=== PATIENT | female | born 1955 | race Caucasian/White ===

== ENCOUNTER 2019-10-16 08:07 | Outpatient (CLI) | payer BC, SELFPAY ==
--- NOTE | 2019-10-16 08:39 | XR_ITS ---
WS: [id number] HIP WITH PELVIS LEFT TECHNIQUE: 3 views of the left hip with pelvis CLINICAL INFORMATION: RHEUMATOID BURSITIS COMPARISON: None. FINDINGS: Moderate degenerative arthritis left hip with hypertrophic changes. Normal femoral neck. Proximal fem urs normal. Pelvic phleboliths. Normal left pubic rami. XR/XR hip LT 2-3V wo/w pel* 13875 IMPRESSION: Moderate degenerative arthritis left hip with hypertrophic changes.
== END 2019-10-16 08:08 | disposition home or self-care (01) ==
LOC: RADWPI 08:17
PROVIDERS: Family Provider Registered Nurse; PCP Nurse Practitioner Family; Visit Provider Nurse Practitioner Family
DX: M06.252 Rheumatoid bursitis, left hip (principal); M25.552 Pain in left hip; M16.12 Unilateral primary osteoarthritis, left hip
CPT/HCPCS: 73502

== ENCOUNTER → 2019-11-16 12:39 | Outpatient (BNVA) | payer BC, SELFPAY | PROVIDERS: Family Provider Registered Nurse; PCP Nurse Practitioner Family; Visit Provider Orthopaedic Surgery | DX: M25.552 Pain in left hip (principal); Z96.641 Presence of right artificial hip joint | CPT/HCPCS: 72170 ==

== ENCOUNTER 2019-11-23 08:00 | Day surgery (SDC) | payer BC, SELFPAY ==
--- NOTE | 2019-11-23 10:45 | ECG_ITS ---
Measurements Intervals [place] Rate: 115 P: 66 [place]: 164 QRS: 91 QRSD: 82 T: 50 QT: 304 QTc: 421 SINUS TACHYCARDIA POSSIBLE LEFT ATRIAL ENLARGEMENT [-0.1mV P WAVE IN V1/V2] BORDERLINE RIGHT AXIS DEVIATION [QRS AXIS > 90] ABNORMAL RHYTHM ECG Compared to ECG 10/02/2018 01:37:33 No significant changes Electronically Signed On 11-23-2019 19:29:07 CDT by Nina Aparicio M.D. [id number]
--- NOTE | 2019-11-23 11:08 | P.ANESASSM_ITS ---
Pre-Anesthetic Assessment Pre-Anesthetic Assessment: Height/Weight: Height 1.57 m Weight 68.039 kg Preop Diagnosis: Osteoarthritis Proposed Procedure: Operation Date: 12/03/19 10:25 Proposed Procedures p Total Hip Arthroplasty utilizing [employer] (TEN) computer naviagtion [id number] M16.12(Left) - Dameon Maria DO Familial anesthetic complications: None Social: Social History: Tobacco Packs per day: 0.5 ppd Exam: Pre-Anes Outpt Exam: alert, oriented x 3, clear to auscultation bilaterally and regular rate & rhythm Airway: Cervical ROM: WNL MP: 3 Additional comments: upper dentures Pulmonary: Pulmonary: None reported CV/HEM: CV/HEM: HTN : : None reported Hepatic: Hepatic: None reported GI: GI: GERD Metabolic: Metabolic: Hyperlipidemia Musc/skel: Musc/skel: Lower Back Pain and OA/DJD Neuropsych: Neuropsych: TIA Anesthetic Plan: ASA status: 3 Anesthesia: General Risk of > 500 ml blood loss (7ml/kg in children): No PFSH Anesthesia PFSH: Social History Smoking and tobacco status: current every day smoker cigarettes Packs smoked per day: 0.5 Alcohol intake: current Alcohol intake frequency: holidays/special occasions only Current occupational status: employed Current occupation: [employer] [facility] Data Anesthesia Cardiac Studies: No Data to Display
== END 2019-11-23 09:00 | disposition home or self-care (01) ==
LOC: OPS 04-19 15:09
PROVIDERS: PCP Nurse Practitioner Family; Visit Provider Orthopaedic Surgery
DX: Z01.818 Encounter for other preprocedural examination (principal); M19.91 Primary osteoarthritis, unspecified site; I10 Essential (primary) hypertension; K21.9 Gastro-esophageal reflux disease without esophagitis; E78.5 Hyperlipidemia, unspecified; F17.210 Nicotine dependence, cigarettes, uncomplicated; Z86.73 Personal history of transient ischemic attack (TIA), and cerebral infarction without residual deficits
CPT/HCPCS: 93005

== ENCOUNTER → 2019-11-30 15:25 | Outpatient (BNVA) | payer BC, SELFPAY | PROVIDERS: Family Provider Nurse Practitioner Family; PCP Nurse Practitioner Family; Visit Provider Internal Medicine Rheumatology | DX: M16.12 Unilateral primary osteoarthritis, left hip (principal); Z79.899 Other long term (current) drug therapy | CPT/HCPCS: 36415; 80076; 82565; 85651 ==

== ENCOUNTER → 2019-11-30 16:24 | Outpatient (BNVA) | payer BC, SELFPAY | PROVIDERS: Family Provider Nurse Practitioner Family; PCP Nurse Practitioner Family; Visit Provider Internal Medicine Rheumatology | DX: M16.12 Unilateral primary osteoarthritis, left hip (principal); Z79.899 Other long term (current) drug therapy | CPT/HCPCS: 85025 ==

== ENCOUNTER 2020-02-22 09:17 | Inpatient (IN) | payer MEDICARE, OTHER, BC, SELFPAY ==
--- NOTE | 2020-02-11 09:56 | ECG_ITS ---
Measurements Intervals [place] Rate: 93 P: 69 [place]: 186 QRS: 86 QRSD: 88 T: 53 QT: 339 QTc: 422 SINUS RHYTHM LOW QRS VOLTAGE IN PRECORDIAL LEADS [QRS DEFLECTION < 1.0 mV IN CHEST LEADS] Compared to ECG 11/23/2019 11:16:57 Low QRS voltage now present Sinus tachycardia no longer present Electronically Signed On 02-11-2020 21:09:46 CDT by Nina Aparicio M.D. [id number]
[2020-02-11 10:05] VITALS: BMI 28.0
--- NOTE | 2020-02-11 10:34 | P.ANESASSM_ITS ---
Pre-Anesthetic Assessment Pre-Anesthetic Assessment: Height/Weight: Height 1.57 m Weight 69.4 kg Preop Diagnosis: Osteoarthritis Proposed Procedure: Operation Date: 02/22/20 07:45 Proposed Procedures p Total Hip Arthroplasty 31380 M16.12(Left) - Donell Calle MD Familial anesthetic complications: none Social: Social History: Tobacco and No alcohol Exam: Pre-Anes Outpt Exam: alert, oriented x 3, clear to auscultation bilaterally and regular rate & rhythm Airway: Cervical ROM: WNL MP: 3 Dentition: False Pulmonary: Pulmonary: None reported CV/HEM: CV/HEM: HTN : : None reported Hepatic: Hepatic: None reported GI: GI: GERD Metabolic: Metabolic: None reported Musc/skel: Musc/skel: RA (on etanercept) Neuropsych: Neuropsych: TIA (on plavix) Anesthetic Plan: ASA status: 3 Anesthesia: General Risk of > 500 ml blood loss (7ml/kg in children): No PFSH Anesthesia PFSH: Medical History Degenerative joint disease of left hip Family History Sister Cancer Denies family history of Diabetes CAD (coronary artery disease) Clotting disorder Dementia Hyperlipidemia Psychiatric illness Chronic kidney disease (CKD) Suicide Anesthesia complication Bleeding disorder Family history of premature coronary artery disease Lung disease Hypertension Stroke Social History Smoking and tobacco status: current every day smoker cigarettes Packs smoked per day: 0.5 Alcohol intake: current Alcohol intake frequency: holidays/special occasions only Current occupational status: employed Current occupation: [employer] Anesthesia Cardiac Studies: No Data to Display
[2020-02-22] VITALS (24 sets, daily range): BP systolic 127–160; BP diastolic 69–88; PULSE 93–121; RESP 16–26; TEMP 35.7–37.1; O2SAT 92–100
[2020-02-22] MEDS: sodium chloride 0.9% 1,000 ML 30 ML IV (06:20)
--- NOTE | 2020-02-22 07:02 | W.PM.OPSUD ---
Surgery/Procedure H&P Update DATE OF PROCEDURE: February 22, 2020 DATE H&P PERFORMED: 02/04/20 PREOP DIAGNOSIS: Osteoarthritis PLANNED PROCEDURE: Operation Date: 02/22/20 07:00 Proposed Procedures p Total Hip Arthroplasty 60768 M16.12(Left) - Donell Calle MD
[2020-02-22] MEDS: tranexamic acid 1,000 mg/10mL SDV 1000 MG IV (07:07)
[2020-02-22] MEDS: tranexamic acid 1,000 mg/10mL SDV 1000 MG IRRIGATION (08:25)
--- NOTE | 2020-02-22 09:04 | P.OP_ITS ---
Operative Report Date of procedure: February 22, 2020 Pre-op Diagnosis: Osteoarthritis Post-op diagnosis: same Post-op Findings: Same Procedure Done: Left total hip arthroplasty Implants: 1) [place] 48 mm ADM acetabular shell 2) Size 7 [place] 132 degree neck angle SecureFit Max stem 3} 28 mm standard femoral head 4} Restorationa ADM X3 insert Pathology: none sent Surgeon: Donell Calle Anesthesia: General Estimated blood loss (mL): 100 Findings: Patient eburnation over the femoral head and superior acetabulum Condition: stable Disposition: PACU Procedure: The patient was taken to the operating room and anesthesia provided by the anesthesia service. The patient was placed in the lateral position on a beanbag. A timeout was performed. The patient was draped in the usual fashion. A 15 cm long incision was made beginning just proximal to the greater trochanter and extending posteriorly to a point just distal to the trochanter on the posterior border of the trochanter. Dissection was carried down with electrocautery through the subcutaneous fat to the fascia elizabeth which was divided proximally and distally with curved scissors. The anterior two thirds of the gluteus medius and minimus were elevated off the hip with electrocautery. The capsule was divided in a H-like fashion. The hip was dislocated and a neck cut made just above the level of the lesser trochanter. Exposure of the acetabulum was facilitated with the acetabular retractors. Remnants of labrum and peripheral osteophytes were removed with electrocautery and a rongeur. A reamer 2 mm under the size the femoral head was utilized to ream medially to the base of the palm and are. Reaming was then increased in 1 mm intervals until a healthy rim a trabecular bone was encountered. A trial ADM cup was placed and its position marked with electrocautery In the acetabulum. A final was press-fit into place. Attention was then focused on the femur. Sequential reaming was done under power until cortical chatter was encountered. Broaching was then accomplished until a stable broach size was obtained. A trial reduction with the head and neck provided excellent stability. The wound was irrigated with saline and antibiotic solution. The final French SecureFit Max stem was press-fit into place. The femoral head was placed and the hip was reduced. The hip was brought through range of motion and found to be free of impingement and stable. The anterior capsule was reapproximated with 1 Ethibond. The gluteus medius and minimus were repaired through bone with 5 Ethibond and reinforced with 1 Ethibond. The fascial elizabeth was closed with 1 Ethibond. The subcutaneous tissue closed with 2-0 Vicryl. The skin was closed with skin chapito. A sterile dressing was applied. The patient was taken to the recovery room in an abduction pillow in stable condition.
[2020-02-22] MEDS: morphine 4 mg/mL SDV 1 mL 2 MG IVP (09:11)
--- NOTE | 2020-02-22 09:13 | SUR.PHASEI ---
6163 PATIENT TO PACU AT THIS TIME FROM OR. DRESSING TO LEFT HIP, CDI. LEFT PEDAL PULSE, STRONG AND MARKED. FIRST ICE APPLIED. ABDUCTOR PILLOW IN PLACE. RODRIGUEZ CATH SECURED TO RIGHT LEG. PATIENT MOANING IN PAIN. PAIN MEDICATION ADMINISTERED.
--- NOTE | 2020-02-22 09:14 | XRR_ITS ---
PROCEDURE INFORMATION: Exam: XR Pelvis Exam date and time: 02/22/2020 9:23 AM Age: 65 years old Clinical indication: Condition or disease; Joint replacement status; Left; Prior surgery; Surgery date: Post-operative (0-2 days); Additional info: Postop L micha TECHNIQUE: Imaging protocol: XR pelvis. Views: 1 or 2 view. COMPARISON: No relevant prior studies available. FINDINGS: Bones/joints: Status post hip arthroplasty on the left. No acute fracture or dislocation. Operative changes in the soft tissues. Limited characterization of the pelvic. The pubic rami appear intact. Prior hip arthroplasty on the right Soft tissues: See Bones/joints finding. XR/XR pelvis 1-2V* [id number] IMPRESSION: Status post hip arthroplasty on the left. No acute fracture or dislocation. Operative changes in the soft tissues.
[2020-02-22] MEDS: HYDROmorphone 1 mg/mL INJ 1 mL 0.5 MG IVP ×2 (09:19→09:36)
[2020-02-22] MEDS: ondansetron 2 mg/ML SDV 2 mL 4 MG IVP ×2 (09:24→09:29)
--- NOTE | 2020-02-22 09:26 | PC.CHAP ---
Pastoral Care Encounter/Spiritual Assessment Type of Contact [] Declined fire operations forester visit [] Patient/Family/Request visit [] Outpatient visit [] Follow-up visit [] Physician referral [] Code/Alert [x] Routine visit [] Staff referral [] Actively dying [] Patient sleeping [] Family support [] [x] Out of room [] Palliative care [] [] Receiving care in room [] Pre-surgical visit [] Trauma [] Long length of stay [] ICU visit [] Other: Relational/Emotional Strength [] Patient feels connected with others/family/visitors/staff [] Distress [] Loneliness/isolation [] Abandonment Spirituality of Patient [] Person of Florinda [] Attends Hindu of their Florinda [] Believes in Prayer [] Reads Bible or Tenriism materials [] There are Spiritual issues to be addressed Wharf Tender Head Interventions [] Prayer [] Active listening [] Non-anxious presence [] Spiritual/emotional support [] Crisis/trauma care [] Spiritual counseling [] Bereavement support [] Provided bereavement packet [] Provided Bible/devotional materials [] Provided toy/stuffed animal, coloring book to patient or family member [] Provided Communion [] Anointing/[place] [] Salvation [] Completed spiritual assessment [] Other: Impact on Illness or Injury [] Angry [] Fearful [] Anxious [] Often cries [] Exhaustion [] Unable to work [] Unable to attend protestant [] Unable to walk/stand [] Unable to read [] Unable to drive [] Unable to eat/drink [] Unable to sleep [] Unable to be with family [] Patient intubated [] Other: Summary Time spent with patient
[2020-02-22] MEDS: metoclopramide 5 mg/mL SDV 2 mL 10 MG IVP (09:35)
--- NOTE | 2020-02-22 10:04 | SUR.PHASEI ---
0970 PATIENT TO MED SURG AT THIS TIME FROM PACU. PAIN AND NAUSEA IMPROVED, TOLERATING ICE CHIPS. ICE IN PLACE TO LEFT HIP. RODRIGUEZ DRAINING CLEAR YELLOW URINE AND SECURED TO LEFT LEG.
--- NOTE | 2020-02-22 11:13 | PC.RESP ---
Smoking Cessation information and a schedule of classes given to patient.
[2020-02-22] MEDS: CELEcoxib 200 mg Capsule PO ×2 (11:14→22:48)
[2020-02-22] MEDS: oxyCODONE 5 mg IR Tab/Cap 10 MG PO ×2 (12:11→21:21)
[2020-02-22] MEDS: chlorhexidine gluconate 0.12% Btl 473 mL 30 ML MUCOUS MEM ×3 (13:17→21:21)
[2020-02-22] MEDS: gabapentin 300 mg Capsule PO ×3 (13:17→21:21)
[2020-02-22] MEDS: lisinopril 20 mg Tablet 40 MG PO (18:13)
[2020-02-22] MEDS: calcium carbonate 500 mg Chew Tablet 1000 MG PO (18:13)
[2020-02-22] MEDS: iron polysaccharide complex 150 mg Capsule PO (18:14)
[2020-02-23] VITALS (11 sets, daily range): BP systolic 92–131; BP diastolic 59–74; PULSE 18–114; RESP 16–105; TEMP 36.6–37.6; O2SAT 92–100
[2020-02-23] MEDS: morphine IR 15 mg Tablet PO ×2 (00:17→11:54)
[2020-02-23] MEDS: oxyCODONE 5 mg IR Tab/Cap 10 MG PO (04:40)
[2020-02-23 05:30] LABS: Hemoglobin 11.9 g/dL (11.5-15.3)
[2020-02-23] MEDS: ondansetron 2 mg/ML SDV 2 mL 4 MG IVP (06:29)
--- NOTE | 2020-02-23 08:05 | P.PN_ITS ---
Subjective Subjective: Interval history: Complains of nausea and weakness. Slow to mobilize with therapy. Vitals/I&O/Wt Last Vital Signs Temp 98.4 F 02/23/20 07:52 Pulse 98 02/23/20 07:52 Resp 18 02/23/20 07:52 BP 92/59 02/23/20 07:52 Pulse Ox 100 02/23/20 07:52 02/22/20 02/23/20 02/23/20 22:59 06:59 14:59 Intake Total 50 / 1520 1010 / 2530 Output Total 2200 / 2500 1600 / 4100 Balance -2150 / -980 -590 / -1570 Physical Exam Narrative: EXAM NARRATIVE: Left hip incision clean. MInimal swelling thigh Left foot no noted neurovascular deficits Urinary Catheter Management^: Carter: Cath Placed During This Visit: yes, but has since been removed by the nurse Reason for Continuing Indwelling Catheter: Required Immobilization for Trauma or Surgery or Anesthesia Urinary Catheter Date of Insertion: 02/22/20 Urinary Catheter Time of Insertion: 07:15 Date Urinary Catheter Removed: 02/23/20 Time Urinary Catheter Discontinued: 06:00 Data : 02/23/20 04:47 A&P Assessment and plan (1) Chronic narcotic use: Not surprisingly, patient with problems with pain control. Will try to increase frequency of morphine as she has tolerated this at home. Suspected nausea and hypotension are due to narcotic use Status: Acute (2) Status post left hip replacement: Slow to progress with therapy due to complications with pain medications. Continue with therapy today Status: Acute Attestations Medical Necessity Statement*: Anticipate discharge tomorrow once pain medication regimen under better control. Coding Level of Care Code Acute Residential Electrician for Kailey Crook Diagnoses Chronic narcotic use F11.90 Status post left hip replacement Z96.642
[2020-02-23] MEDS: amlodipine 10 mg Tablet PO (09:14)
[2020-02-23] MEDS: atorvastatin 40 mg Tablet 20 MG PO (09:14)
[2020-02-23] MEDS: calcium carbonate 500 mg Chew Tablet 1000 MG PO ×2 (09:14→17:13)
[2020-02-23] MEDS: gabapentin 300 mg Capsule PO ×4 (09:14→20:29)
[2020-02-23] MEDS: iron polysaccharide complex 150 mg Capsule PO ×2 (09:14→17:13)
[2020-02-23] MEDS: venlafaxine ER (24HR) 150 mg Capsule PO (09:14)
[2020-02-23] MEDS: lisinopril 20 mg Tablet 40 MG PO ×2 (09:14→17:13)
[2020-02-23] MEDS: multivitamin therapeutic Tablet 1 TAB PO (09:15)
[2020-02-23] MEDS: cholecalciferol (vitamin D3) 1,000 unit Tablet 1000 UNIT PO (09:15)
[2020-02-23] MEDS: pantoprazole DR 40 mg Tablet PO (09:15)
[2020-02-23] MEDS: clopidogrel 75 mg Tablet PO (09:15)
[2020-02-23] MEDS: chlorhexidine gluconate 0.12% Btl 473 mL 30 ML MUCOUS MEM ×4 (09:15→20:29)
[2020-02-23] MEDS: CELEcoxib 200 mg Capsule PO ×2 (11:53→23:14)
[2020-02-23] MEDS: sennosides-docusate Tablet 2 TAB PO (17:13)
[2020-02-24 03:58] VITALS: BP 125/78; PULSE 104; RESP 16; TEMP 36.7; O2SAT 92
[2020-02-24 07:17] VITALS: BP 118/76; PULSE 122; RESP 22; TEMP 36.9; O2SAT 95
[2020-02-24 07:55] VITALS: RESP 18
[2020-02-24] MEDS: morphine IR 15 mg Tablet PO (07:55)
[2020-02-24] MEDS: iron polysaccharide complex 150 mg Capsule PO (07:56)
[2020-02-24] MEDS: venlafaxine ER (24HR) 150 mg Capsule PO (07:59)
[2020-02-24] MEDS: atorvastatin 40 mg Tablet 20 MG PO (07:59)
[2020-02-24] MEDS: gabapentin 300 mg Capsule PO ×2 (08:00→12:29)
[2020-02-24] MEDS: pantoprazole DR 40 mg Tablet PO (08:00)
[2020-02-24] MEDS: clopidogrel 75 mg Tablet PO (08:00)
[2020-02-24] MEDS: amlodipine 10 mg Tablet PO (08:00)
[2020-02-24] MEDS: multivitamin therapeutic Tablet 1 TAB PO (08:00)
[2020-02-24] MEDS: chlorhexidine gluconate 0.12% Btl 473 mL 30 ML MUCOUS MEM ×2 (08:00→12:29)
[2020-02-24] MEDS: cholecalciferol (vitamin D3) 1,000 unit Tablet 1000 UNIT PO (08:00)
[2020-02-24] MEDS: lisinopril 20 mg Tablet 40 MG PO (08:00)
[2020-02-24] MEDS: calcium carbonate 500 mg Chew Tablet 1000 MG PO (08:00)
[2020-02-24] MEDS: CELEcoxib 200 mg Capsule PO (10:42)
[2020-02-24 10:52] VITALS: BP 129/76; PULSE 113; RESP 18; TEMP 36.9; O2SAT 97
--- NOTE | 2020-02-24 14:45 | PM.DCS ---
Discharge Providers Date of Admission: 02/23/20 08:14 Date of Discharge: February 24, 2020 Attending Provider at Admission: Donell Calle MD Attending Provider at Discharge: Donell Calle MD Primary Care Provider: RORY Bonilla Diagnoses at Discharge Discharge Diagnosis (1) Chronic narcotic use: Status: Acute (2) Status post left hip replacement: Status: Acute (3) Degenerative joint disease of left hip: Status: Resolved Reason for Visit Reason for Visit: primary osteoarthritis of left hip Hospital Course Hospital Course: Patient was admitted for elective left total hip arthroplasty on 02/22/2020. On the first postoperative day she had problems with pain control and nausea. This was attributed to her oxycodone and she was change a more frequent dose of her immediate release morphine with good improvement. By the second day she was tolerating p.o. intake. She was independent with her therapy. She was managed with aspirin and sequential compression dressings for DVT prophylaxis. By the second day she was thought stable for discharge Physical Exam Narrative: EXAM NARRATIVE: Left hip incision is clean and dry. Expected swelling left thigh. Urinary Catheter Management^: Carter: Cath Placed During This Visit: yes, but has since been removed by the nurse Reason for Continuing Indwelling Catheter: Required Immobilization for Trauma or Surgery or Anesthesia Urinary Catheter Date of Insertion: 02/22/20 Urinary Catheter Time of Insertion: 07:15 Date Urinary Catheter Removed: 02/23/20 Time Urinary Catheter Discontinued: 06:00 Discharge Data Data Completed and Pending: Completed Studies During Hospitalization Category Date Time Status XR pelvis 1-2V* 7 2170 Routine Exams 02/22/20 09:14 Completed Vitals: Last Vital Signs Temp 98.5 F 02/24/20 10:52 Pulse 113 H 02/24/20 10:52 Resp 18 02/24/20 10:52 BP 129/76 02/24/20 10:52 Pulse Ox 97 02/24/20 10:52 Discharge Plan Discharge Condition: Stable Prescriptions: New celecoxib 200 mg Capsule 200 mg PO Q12H Qty: 30 RF: 0 Continued clopidogrel [Plavix] 75 mg tablet 75 mg PO DAILY RF: 0 carisoprodol 350 mg tablet 350 mg PO TID RF: 0 gabapentin 300 mg capsule 300 mg PO QID RF: 0 morphine 15 mg tablet 15 mg PO QID PRN (Reason: Pain) RF: 0 alprazolam 1 mg tablet 1 mg PO TID PRN (Reason: Nausea) RF: 0 venlafaxine 150 mg capsule,extended release 24hr 150 mg PO DAILY RF: 0 atorvastatin 20 mg tablet 20 mg PO DAILY RF: 0 amlodipine 10 mg tablet 10 mg PO DAILY RF: 0 lisinopril 40 mg tablet 40 mg PO BID RF: 0 Enbrel Mini 50 mg/mL (1 mL) cartridge 50 mg SUBCUT .Q7 days Qty: 4 RF: 2 promethazine 12.5 mg Tablet 12.5 - 25 mg PO TID PRN (Reason: Nausea) RF: 0 Enbrel 50 mg/mL (1 mL) Syringe 50 mg SUBCUT DIRECTED RF: 0 esomeprazole magnesium 20 mg capsule,delayed release(DR/EC) 20 mg PO DAILY RF: 0 Referrals: Keila Schwarz FNP [Primary Care Provider] - Donell Calle MD [Physician] - 03/07/20 2:30 pm Discharge Diet: Advance as tolerated Discharge Activity: Limit activity as instructed Activity Restrictions/Additional Instructions: May shower once incisions completely free of drainage. Discontinue right hip dressing in 24-48 hours. Replaced dressings as needed. Take Celebrex twice a day for the next 15 days for pain , discontinue other anti-inflammatories Take morphine for breakthrough pain. Exercises per physical therapy. May discontinue abduction pillow Discharge Attestations Time Spent in Discharge Care*: other Quality Metrics Clinical Quality Measures During this hospital stay, did patient experience: None Coding Level of Care Code Acute Temporary Receptionist for Kailey Fwkapil Diagnoses Chronic narcotic use F11.90 Status post left hip replacement Z96.642 Degenerative joint disease of left hip M16.12
[2020-02-24 16:16] VITALS: BP 129/76; PULSE 113; RESP 18; TEMP 36.9; O2SAT 97
== END 2020-02-24 16:19 | disposition home health service (06) | DRG 470 ==
LOC: MEDSURG 09:17
PROVIDERS: Admitting Provider Orthopaedic Surgery; PCP Nurse Practitioner Family; Visit Provider Orthopaedic Surgery
PROC: 0SRB0J9 Replacement of Left Hip Joint with Synthetic Substitute, Cemented, Open Approach (ICD-10-PCS; CPT 27130; principal; 2020-02-22 07:00)
DX: M16.12 Unilateral primary osteoarthritis, left hip (principal); M06.9 Rheumatoid arthritis, unspecified; K21.9 Gastro-esophageal reflux disease without esophagitis; I10 Essential (primary) hypertension; F17.210 Nicotine dependence, cigarettes, uncomplicated; Z86.73 Personal history of transient ischemic attack (TIA), and cerebral infarction without residual deficits; Z79.02 Long term (current) use of antithrombotics/antiplatelets; Z79.891 Long term (current) use of opiate analgesic
CPT/HCPCS: 12345; 36415; 51702; 72170; 85018; 93005; 97110; 97116; 97161; 97165; 97166; 97530; 97535; C1776; G0378; J0690; J1170; J1580; J2270; J2405; J2704; J2765; J3010; J3490; J7030

== ENCOUNTER → 2020-04-04 11:39 | Outpatient (BNVA) | payer MEDICARE, OTHER, SELFPAY | PROVIDERS: PCP Nurse Practitioner Family; Visit Provider Orthopaedic Surgery | DX: Z48.89 Encounter for other specified surgical aftercare (principal); Z96.642 Presence of left artificial hip joint | CPT/HCPCS: 73502 ==

== ENCOUNTER → 2020-04-13 11:31 | Outpatient (BNVA) | payer MEDICARE, OTHER, SELFPAY | PROVIDERS: PCP Nurse Practitioner Family; Visit Provider Internal Medicine Rheumatology | DX: M05.79 Rheumatoid arthritis with rheumatoid factor of multiple sites without organ or systems involvement (principal); Z11.59 Encounter for screening for other viral diseases; Z79.899 Other long term (current) drug therapy; M19.90 Unspecified osteoarthritis, unspecified site; M79.7 Fibromyalgia; F17.210 Nicotine dependence, cigarettes, uncomplicated | CPT/HCPCS: 36415; 80076; 82306; 82565; 85025; 85651; 86140; 86704; 86803; 87340; 99214 ==

== ENCOUNTER 2020-12-15 11:14 | Outpatient (CLI) | payer MEDICARE, OTHER, SELFPAY ==
--- NOTE | 2020-12-15 11:22 | MM_ITS ---
WS: [id number] BILATERAL SCREENING DIGITAL MAMMOGRAM WITH CAD HISTORY: SCREENING COMPARISON: 11/04/2015 and 09/10/2014 Bilateral CC and MLO views submitted. Computer aided detection analyzed. Breast composition: There are scattered areas of fibroglandular density. No suspicious masses, microc alcifications or architectural distortion. Long-term stability of a 2.0 x 1.5 cm high density nodule in the anterior RIGHT breast at 9:00. Benign calcifications in each breast. MM/[place] [id number] IMPRESSION: BI-RADS: 2-Benign FOLLOW UP: 1 Year Follow-up
== END 2020-12-15 11:15 | disposition home or self-care (01) ==
LOC: RADSHAW 11:20
PROVIDERS: PCP Nurse Practitioner Family; Visit Provider Nurse Practitioner Family
DX: Z12.31 Encounter for screening mammogram for malignant neoplasm of breast (principal)
CPT/HCPCS: 77067

== ENCOUNTER 2020-12-26 13:09 | Outpatient (CLI) | payer MEDICARE, OTHER, SELFPAY ==
[2020-12-26 14:06] LABS: Basophils % 0.5 %; Eosinophils # 0.1 10^3/uL (0.0-0.8); Eosinophils % 0.7 %; Hematocrit 39.1 % (37.0-47.0); Hemoglobin 12.6 g/dL (11.5-15.3); Lymphocytes # 3.7 10^3/uL (0.8-4.8); Lymphocytes % 50.1 %; Mean Corpuscular HGB Conc 32.2 g/dL (30.0-36.0); Mean Corpuscular Hemoglobin 31.9 pg (28.0-34.0); Mean Platelet Volume 9.7 fL (7.4-10.4); Monocytes # 0.5 10^3/uL (0.2-0.9); Monocytes % 6.8 %; Neutrophils # 3.12 10^3/uL (1.8-7.7); Neutrophils % 41.8 %; Nucleated Red Blood Cells % 0 %; Platelet Count 385 10^3/cmm (130-400); Red Blood Count 3.95 10^6/uL (4.1-5.3); Red Cell Distribution Width 13.9 % (12.1-15.1); White Blood Count 7.5 10^3/uL (4.0-10.0)
[2020-12-26 14:21] LABS: Alanine Aminotransferase 18 U/L (0-33); Albumin Level 4.2 g/dL (3.5-5.2); Alkaline Phosphatase 65 IU/L (35-105); Aspartate Amino Transferase 21 U/L (0-32); C Reactive Protein 2.3 mg/L (0.0-4.9); Globulin 2.4 g/dL (1.3-4.6); Glomerular Filtration Rate 160.2 mL/min (90-130); Total Bilirubin 0.2 mg/dL (0.15-1.2); Total Protein 6.6 g/dL (6.6-8.7)
== END 2020-12-26 13:10 ==
LOC: LAB 13:14
PROVIDERS: PCP Nurse Practitioner Family; Visit Provider Internal Medicine Rheumatology
DX: M05.79 Rheumatoid arthritis with rheumatoid factor of multiple sites without organ or systems involvement (principal); Z79.899 Other long term (current) drug therapy; M79.7 Fibromyalgia; Z96.653 Presence of artificial knee joint, bilateral; Z96.643 Presence of artificial hip joint, bilateral; F17.210 Nicotine dependence, cigarettes, uncomplicated
CPT/HCPCS: 36415; 80076; 82565; 85025; 86140; 99214

== ENCOUNTER → 2021-04-10 09:56 | Outpatient (BNVA) | payer MEDICARE, OTHER, SELFPAY | PROVIDERS: PCP Nurse Practitioner Family; Visit Provider Internal Medicine Rheumatology | DX: M05.79 Rheumatoid arthritis with rheumatoid factor of multiple sites without organ or systems involvement (principal); Z79.899 Other long term (current) drug therapy; Z01.89 Encounter for other specified special examinations | CPT/HCPCS: 80076; 82565; 85025; 86140 ==

== ENCOUNTER → 2021-11-08 12:56 | Outpatient (BNVA) | payer MEDICARE, SELFPAY | PROVIDERS: PCP Nurse Practitioner Family; Visit Provider Internal Medicine Rheumatology | DX: M05.79 Rheumatoid arthritis with rheumatoid factor of multiple sites without organ or systems involvement (principal); M15.9 Polyosteoarthritis, unspecified; Z79.899 Other long term (current) drug therapy; M79.7 Fibromyalgia; Z96.643 Presence of artificial hip joint, bilateral; Z96.651 Presence of right artificial knee joint; Z71.89 Other specified counseling | CPT/HCPCS: 99214 ==

== ENCOUNTER 2021-11-29 12:48 | Outpatient (CLI) | payer MEDICARE, SELFPAY ==
[2021-11-29 14:36] LABS: Basophils # 0.1 10^3/uL (0.0-0.1); Basophils % 0.6 %; Eosinophils # 0.1 10^3/uL (0.0-0.8); Eosinophils % 0.8 %; Hematocrit 42.2 % (37.0-47.0); Hemoglobin 13.6 g/dL (11.5-15.3); Lymphocytes # 2.8 10^3/uL (0.8-4.8); Lymphocytes % 35.3 %; Mean Corpuscular HGB Conc 32.2 g/dL (30.0-36.0); Mean Corpuscular Hemoglobin 31.3 pg (28.0-34.0); Mean Platelet Volume 10.4 fL (7.4-10.4); Monocytes # 0.5 10^3/uL (0.2-0.9); Monocytes % 6.2 %; Neutrophils # 4.51 10^3/uL (1.8-7.7); Neutrophils % 56.7 %; Nucleated Red Blood Cells % 0 %; Platelet Count 400 10^3/cmm (130-400); Red Blood Count 4.35 10^6/uL (4.1-5.3); Red Cell Distribution Width 12.8 % (12.1-15.1); White Blood Count 7.9 10^3/uL (4.0-10.0)
[2021-11-29 15:09] LABS: Alanine Aminotransferase 20 U/L (0-33); Albumin Level 4.6 g/dL (3.5-5.2); Alkaline Phosphatase 76 IU/L (35-105); Aspartate Amino Transferase 24 U/L (0-32); Globulin 2.6 g/dL (1.3-4.6); Glomerular Filtration Rate 159.7 mL/min (90-130); Total Bilirubin 0.3 mg/dL (0.15-1.2); Total Protein 7.2 g/dL (6.6-8.7)
== END 2021-11-29 12:49 | disposition home or self-care (01) ==
PROVIDERS: PCP Nurse Practitioner Family; Visit Provider Internal Medicine Rheumatology
DX: M05.79 Rheumatoid arthritis with rheumatoid factor of multiple sites without organ or systems involvement (principal); Z79.899 Other long term (current) drug therapy
CPT/HCPCS: 80076; 82565; 85025; 86140

== ENCOUNTER 2022-03-14 11:05 | Outpatient (CLI) | payer MEDICARE, SELFPAY ==
[2022-03-14 11:48] LABS: Basophils % 0.5 %; Eosinophils % 0.2 %; Hematocrit 41.7 % (37.0-47.0); Hemoglobin 13.5 g/dL (11.5-15.3); Lymphocytes # 1.7 10^3/uL (0.8-4.8); Lymphocytes % 20.6 %; Mean Corpuscular HGB Conc 32.4 g/dL (30.0-36.0); Mean Corpuscular Hemoglobin 31.1 pg (28.0-34.0); Mean Corpuscular Volume 96.1 fl (81-99); Mean Platelet Volume 9.8 fL (7.4-10.4); Monocytes # 0.5 10^3/uL (0.2-0.9); Monocytes % 5.9 %; Neutrophils # 5.91 10^3/uL (1.8-7.7); Neutrophils % 72.4 %; Nucleated Red Blood Cells % 0 %; Platelet Count 395 10^3/cmm (130-400); Red Blood Count 4.34 10^6/uL (4.1-5.3); Red Cell Distribution Width 14.3 % (12.1-15.1); White Blood Count 8.2 10^3/uL (4.0-10.0)
[2022-03-14 12:41] LABS: Alanine Aminotransferase 15 U/L (0-33); Albumin Level 4.5 g/dL (3.5-5.2); Alkaline Phosphatase 74 IU/L (35-105); Aspartate Amino Transferase 17 U/L (0-32); C Reactive Protein 19.2 mg/L (0.0-4.9); Globulin 2.4 g/dL (1.3-4.6); Glomerular Filtration Rate 159.2 mL/min (90-130); Total Bilirubin 0.2 mg/dL (0.15-1.2); Total Protein 6.9 g/dL (6.6-8.7)
== END 2022-03-14 11:06 | disposition home or self-care (01) ==
LOC: LAB 11:07 → RAD 14:26
PROVIDERS: PCP Nurse Practitioner Family; Visit Provider Internal Medicine Rheumatology
DX: M15.9 Polyosteoarthritis, unspecified (principal); M79.7 Fibromyalgia; Z96.698 Presence of other orthopedic joint implants; I70.0 Atherosclerosis of aorta; M05.79 Rheumatoid arthritis with rheumatoid factor of multiple sites without organ or systems involvement; Z79.899 Other long term (current) drug therapy
CPT/HCPCS: 71046; 80076; 82565; 85025; 86140; 99214

== ENCOUNTER 2022-07-02 13:28 | Outpatient (CLI) | payer MEDICARE, SELFPAY ==
[2022-07-02 13:54] LABS: Basophils % 0.4 %; Eosinophils % 0.1 %; Hematocrit 41.7 % (37.0-47.0); Hemoglobin 13.6 g/dL (11.5-15.3); Lymphocytes # 1.4 10^3/uL (0.8-4.8); Lymphocytes % 12.7 %; Mean Corpuscular HGB Conc 32.6 g/dL (30.0-36.0); Mean Corpuscular Hemoglobin 31.5 pg (28.0-34.0); Mean Corpuscular Volume 96.5 fl (81-99); Mean Platelet Volume 9.7 fL (7.4-10.4); Monocytes # 0.2 10^3/uL (0.2-0.9); Monocytes % 1.5 %; Neutrophils # 9.25 10^3/uL (1.8-7.7); Neutrophils % 84.7 %; Nucleated Red Blood Cells % 0 %; Platelet Count 411 10^3/cmm (130-400); Red Blood Count 4.32 10^6/uL (4.1-5.3); Red Cell Distribution Width 13.5 % (12.1-15.1); White Blood Count 10.9 10^3/uL (4.0-10.0)
[2022-07-02 14:16] LABS: Alanine Aminotransferase 15 U/L (0-33); Albumin Level 4.1 g/dL (3.5-5.2); Alkaline Phosphatase 75 U/L (35-105); Aspartate Amino Transferase 16 U/L (0-32); C Reactive Protein 3.8 mg/L (0.0-4.9); Globulin 3.1 g/dL (1.3-4.6); Glomerular Filtration Rate 123.1 mL/min (90-130); Total Bilirubin 0.2 mg/dL (0.15-1.2); Total Protein 7.2 g/dL (6.6-8.7)
== END 2022-07-02 13:29 | disposition home or self-care (01) ==
LOC: LAB 13:30
PROVIDERS: PCP Nurse Practitioner Family; Visit Provider Internal Medicine Rheumatology
DX: M05.79 Rheumatoid arthritis with rheumatoid factor of multiple sites without organ or systems involvement (principal); Z79.899 Other long term (current) drug therapy; M19.90 Unspecified osteoarthritis, unspecified site
CPT/HCPCS: 36415; 80076; 82565; 85025; 86140

== ENCOUNTER → 2022-07-04 12:40 | Outpatient (BNVA) | payer MEDICARE, SELFPAY | PROVIDERS: PCP Nurse Practitioner Family; Visit Provider Internal Medicine Rheumatology | DX: M05.79 Rheumatoid arthritis with rheumatoid factor of multiple sites without organ or systems involvement (principal); Z79.899 Other long term (current) drug therapy; Z71.89 Other specified counseling; M79.7 Fibromyalgia; M15.9 Polyosteoarthritis, unspecified; Z96.651 Presence of right artificial knee joint; Z96.643 Presence of artificial hip joint, bilateral | CPT/HCPCS: 20610; 99214; J1030 ==

== ENCOUNTER 2022-11-08 10:20 | Outpatient (CLI) | payer MEDICARE, SELFPAY ==
[2022-11-08 11:00] LABS: Basophils % 0.5 %; Eosinophils # 0.1 10^3/uL (0.0-0.8); Eosinophils % 1.2 %; Hematocrit 41.2 % (37.0-47.0); Hemoglobin 13.5 g/dL (11.5-15.3); Lymphocytes # 2.4 10^3/uL (0.8-4.8); Lymphocytes % 33.2 %; Mean Corpuscular HGB Conc 32.8 g/dL (30.0-36.0); Mean Corpuscular Hemoglobin 31.8 pg (28.0-34.0); Mean Corpuscular Volume 96.9 fl (81-99); Mean Platelet Volume 10.4 fL (7.4-10.4); Monocytes # 0.7 10^3/uL (0.2-0.9); Monocytes % 9.3 %; Neutrophils # 4.05 10^3/uL (1.8-7.7); Neutrophils % 55.5 %; Nucleated Red Blood Cells % 0 %; Platelet Count 368 10^3/cmm (130-400); Red Blood Count 4.25 10^6/uL (4.1-5.3); Red Cell Distribution Width 13.2 % (12.1-15.1); White Blood Count 7.3 10^3/uL (4.0-10.0)
[2022-11-08 11:26] LABS: Alanine Aminotransferase 15 U/L (0-33); Albumin Level 4.4 g/dL (3.5-5.2); Alkaline Phosphatase 71 U/L (35-105); Aspartate Amino Transferase 25 U/L (0-32); C Reactive Protein 3.6 mg/L (0.0-4.9); Globulin 2.5 g/dL (1.3-4.6); Glomerular Filtration Rate 123.1 mL/min (90-130); Total Bilirubin 0.2 mg/dL (0.15-1.2); Total Protein 6.9 g/dL (6.6-8.7)
== END 2022-11-08 10:21 | disposition home or self-care (01) ==
PROVIDERS: PCP Nurse Practitioner Family; Visit Provider Internal Medicine Rheumatology
DX: M05.79 Rheumatoid arthritis with rheumatoid factor of multiple sites without organ or systems involvement (principal); Z79.899 Other long term (current) drug therapy
CPT/HCPCS: 36415; 80076; 82565; 85025; 86140; 99214

== ENCOUNTER 2022-11-27 12:50 | Emergency (ER) | payer MEDICARE, SELFPAY ==
[2022-11-27] VITALS (11 sets, daily range): BP systolic 108–150; BP diastolic 82–96; PULSE 93–102; RESP 15–26; TEMP 36.6; O2SAT 93–96
--- NOTE | 2022-11-27 13:12 | ECG_ITS ---
[facility] Test Date: 2022-11-27 Pat Name: Nataly Luther Department: Room: Gender: Female Stone Splitter: : 1955 Requested By: Rigoberto Seay Order Number: [id number] Wendy MD: Nina Aparicio M.D. Measurements Intervals [place] Rate: 97 P: 59 [place]: 164 QRS: 86 QRSD: 91 T: 50 QT: 355 QTc: 452 Interpretive Statements SINUS RHYTHM Compared to ECG 02/11/2020 10:20:26 No significant changes Electronically Signed On 11-28-2022 0:27:41 CDT by Nina Aparicio M.D. [id number]
--- NOTE | 2022-11-27 13:12 | XR_ITS ---
WS: [id number] Exam: XR chest 1V portable [id number] Date/Time of Exam: 11/27/2022 1:14 PM Reason For Exam: cp Comparison 03/14/2022. The lungs are clear and fully inflated. Normal cardiomediastinal silhouette. No pleural effusions. De nse calcification of the thoracic aorta. Bony structures are intact. Hardware noted in the lower C-sp ine. XR/XR chest 1V portable [id number] IMPRESSION: 1. No acute cardiopulmonary finding.
--- NOTE | 2022-11-27 13:52 | CT_ITS ---
WS: [id number] CT ABDOMEN PELVIS TECHNIQUE: Contrast-enhanced CT of the abdomen and pelvis with coronal and sagittal reformatted image s. CLINICAL INFORMATION: epigastric pain COMPARISON: None. DLP: 607.[address] scans at [facility] use at least one of these dose optimization techniques: automated e xposure control; mA and/or kV adjustment per patient size (includes targeted exams where dose is matc hed to clinical indication); or iterative reconstruction. FINDINGS: Diffuse fatty infiltration liver. Hepatomegaly. Normal portal vein and splenic vein. Normal spleen. S mall esophageal hiatal hernia. Adrenal glands are normal. Normal renal parenchymal enhancement. No hy dronephrosis. Lung bases are well aerated. Normal caliber abdominal aorta. Aortic calcification. Steffanie ac and SMA are patent. Adrenal glands are normal. Normal pancreatic parenchymal enhancement. No hydronephrosis in either kidney. Bilateral THAs degrade images in the pelvis. Sigmoid diverticulosis. Normal appendix in the RIGHT lower quadrant. Slight an terolisthesis L4 on L5. Disc space narrowing worse at L1-L2. Tiny fat-containing umbilical hernia. CT/CT abdomen pelvis w con* [id number] IMPRESSION: 1. Hepatomegaly with diffuse fatty infiltration of the liver. Recommend correl ation with hepatic function tests. 2. Tiny esophageal hiatal hernia. 3. Gallbladder appears normal. 4. Normal caliber abdominal aorta with moderate aortic calcification. 5. No hydronephrosis in either kidney. 6. Sigmoid diverticulosis. 7. RAMEZ degrades images in the pelvis. 8. No other acute findings.
--- NOTE | 2022-11-27 13:52 | ED_ITS ---
HPI - Chest Pain General: Chief Complaint: Chest Pain Stated Complaint: CHEST PAIN Time Seen by Provider: 11/27/22 13:12 Source: patient, family and RN notes reviewed Mode of arrival: EMS Limitations: no limitations History of Present Illness: This patient was transported by EMS from her home. She is here because of concerns about epigastric pain that began approximately 4 days prior to arrival. She states the pain is predominantly in her upper abdomen and the subxiphoid region with some radiation to her mid chest and at times seems to radiate to her mid right shoulder. She states that she is had vomiting with the discomfort. She is a tobacco user. She states that she is taken Tums without relief. She denies any blood in her stools or black tarry stools. She denies any history of ulcer disease however she states she used to take Nexium and has not done so for many months. She had a prior hysterectomy but no other abdominal surgeries. She does not drink alcohol very often. She does not take nonsteroidals. He states his symptoms have been pretty constant since onset. Denies any known history of biliary tract disease, gallbladder disease etc. No history of food intolerance. No recent travel or bad food exposure. She did take Levaquin approximately 1 month ago. She does have a history of intermittent loose stools this been attributed to what she states that she thinks was irritable bowel syndrome. No known history of cardiovascular disease. Does smoke tobacco Patient states she was given an antiemetic in route and she feels much better. She also received 324 mg of aspirin prior to arrival. Onset: during rest Pain location: epigastric and subxiphoid Associated symptoms: Reports abdominal pain and vomiting; Deny dyspnea, fever(s) or syncope Risk Factors: Coronary artery disease risk factors: smoking history Review of Systems Const: Denies: fever(s) or chills Eyes: Denies: change in vision ENMT: Denies: throat pain or odynophagia Card: Denies: chest pain, irregular heart rhythm or syncope Resp: Denies: dyspnea, productive cough or non-productive cough GI: Reports: abdominal pain and vomiting; Denies: diarrhea, hematochezia or melena : Denies: flank pain, difficulty voiding, dysuria or urinary frequency Musc: Denies: neck pain, back pain, extremity pain or extremity swelling Skin/Breast: Denies: rash Neuro: Denies: headache(s), numbness in extremities or weakness in extremities Psych: Denies: anxiety or depression Pankaj/Lymph: Denies: easy bruising or easy bleeding PFSH ED PFSH: Medical History Anxiety and depression Diagnosed in her early 40s and is on medication managed by her primary care provider. She does not have a therapist Chronic hypertension Diagnosed in her 40s and is well controlled on medication now-was told that t he stroke was because of uncontrolled hypertension Elevated cholesterol Diagnosed in 2017 and is currently on medication managed by her primary care provider. Fibromyalgia No pertinent past medical history Denies diabetes, asthma, seizures, DVT/PE PCP: RORY Koch Osteoarthritis Seropositive rheumatoid arthritis of multiple sites TIA (transient ischemic attack) Reports history of oral mini stroke in 2017 and is taking Plavix because of this. This is being managed by her primary care provider. Surgical History H/O cervical spine surgery In her 40s H/O knee surgery Arthroscopic right knee surgery x2 H/O: hysterectomy Age of 35--had heavy bleeding and endometriosis and had a vaginal hysterectomy. Ovaries were not removed. She was told there is no cancer or precancer. History of hysteroscopy At the age of 25 for removal of an embedded coil IUD. History of total right knee replacement 2009 Status post hip replacement Right hip---2015 Left hip---2027 [facility] Family History Sister Colon cancer Diagnosed at age 52 Father Heart disease Hypertension Mother Heart disease Hypertension Denies family history of Ovarian cancer Diabetes Hyperlipidemia Breast cancer Uterine cancer Thyroid condition Stroke Social History Smoking and tobacco status: never smoked Alcohol intake: current Alcohol intake frequency: holidays/special occasions only Current occupational status: employed Current occupation: [employer] Physical Exam Narrative: EXAM NARRATIVE: She appears to be comfortable and answers questions in a goal-directed fashion. Cooperative. Const: COMMON NORMALS: no acute distress, average body habitus, patient oriented x3 and healthy appearing GENERAL APPEARANCE: cooperative and comfortable ORIENTATION/CONSCIOUSNESS: Yes awake, Yes oriented to person and Yes oriented to place HENMT: COMMON NORMALS: normocephalic, Normal nasal mucous membranes and turbinates present, moist oral mucous membranes and oropharynx normal HEAD & SCALP: normocephalic FACE & SINUS: normal facial exam NOSE: Normal nasal mucous membranes and turbinates present Eye: COMMON NORMALS: Equal, round and reactive pupils present, EOMs intact bilaterally, conjunctivae normal and no scleral icterus CONJUNCTIVA: Yes conjunctivae normal PUPIL: Yes Equal, round and reactive pupils present Neck/C-Spine: COMMON NORMALS: full ROM, no lymphadenopathy, no JVD and No carotid bruits Chest: COMMONS NORMALS: normal inspection of the chest and normal palpation of entire chest wall Resp: COMMON NORMALS: normal respiratory effort, No use of accessory muscles and clear to auscultation bilaterally AUSCULTATION: clear to auscultation bilaterally Cardio: COMMON NORMALS: no JVD, regular rate, regular rhythm, No murmurs present (Cardio) and Peripheral pulses 2+ throughout RATE: regular rate RHYTHM: regular rhythm PERIPHERAL PULSES: Peripheral pulses 2+ throughout GI: COMMON NORMALS: Normal to inspection, nondistended, normoactive bowel sounds present, No hepatosplenomegaly present, no masses and no bruits PALPATION: Yes Tenderness to palpation present (GI) (Epigastric), No Guarding due to palpation present (GI), No Rigid due to palpation, Yes No hepatosple nomegaly present and No Rebound tenderness present : COMMON NORMALS: Yes no CVA tenderness BLADDER/KIDNEY EXAM: Yes no CVA tenderness Back/Pelvis: COMMON NORMALS: no CVA tenderness, thoracic and lumbar spine normal to inspection, no thoracic nor lumbar tenderness and straight leg raise negative bilaterally Extremity: COMMON NORMALS: normal to inspection, full ROM, capillary refill normal, no calf tenderness and no pedal edema Neuro: COMMON NORMALS: patient oriented x3, moves all extremities, no focal motor deficits and no sensory deficits noted SENSORIUM/ORIENTATION: Yes oriented to person and Yes oriented to place Psych: COMMON NORMALS: mental status grossly normal and cooperative Skin: COMMON NORMALS: no rashes or lesions noted, no wounds and turgor normal GENERAL SKIN EXAM: no rashes or lesions noted and turgor normal Course Reevaluation(s): Reevaluation #1: Patient reevaluated. She states her symptoms are resolved and she feels much improved. We discussed all current findings and implications. She is currently stable at this time to be discharged with outpatient follow-up. Time: 16:39 Vital Signs: Vital signs: Vital Signs Temperature 97.9 F 11/27/22 13:01 Pulse Rate 97 11/27/22 15:00 Respiratory Rate 22 H 11/27/22 15:00 Blood Pressure 147/90 11/27/22 15:00 Pulse Oximetry 95 11/27/22 15:00 Oxygen Delivery Me thod 11/27/22 13:01 [facility] [place] - Chest Pain Medical Decision Making This patient presented to our emergency department after 4 days of fairly constant epigastric and subxiphoid discomfort. She did not have any associated chest pain per se, melanotic stools bloody stools etc. She had a prior history of use of proton pump inhibitors for period of time but had stopped this several months ago. She is also had an increase in her dose of prednisone in the last few weeks because of her rheumatoid arthritis. Due to her age symptoms complex and other comorbidities that evaluation was gauged to ensure no evidence of ACS cardiac ischemia of heart failure etc. Her serial troponins, EKGs were reassuring particularly in light of the duration of her symptoms make ACS etc. extremely low likelihood. A CAT scan was obtained which revealed mild fatty liver but otherwise no evidence of significant biliary tract disease, rate vessel disease, obvious gross perforation etc. She had resolution of her symptoms with proton pump inhibitor while in the emergency department. Seems consistent with gastroesophageal reflux, gastritis. With low likelihood of other worrisome conditions at this time. We discussed current findings, limitations, need for continue therapy for the next 6 weeks with dual therapy and then backing off to using H2 blockers for prolonged symptom control. Lab Data I reviewed the patient's lab results. 11/27/22 11:55 11/27/22 11:55 Radiology Impressions Chest X-Ray 11/27/22 13:12 IMPRESSION: 1. No acute cardiopulmonary finding. Abdomen/Pelvis CT 11/27/22 13:52 IMPRESSION: 1. Hepatomegaly with diffuse fatty infiltration of the liver. Recommend correlation with hepatic function tests. 2. Tiny esophageal hiatal hernia. 3. Gallbladder appears normal. 4. Normal caliber abdominal aorta with moderate aortic calcification. 5. No hydronephrosis in either kidney. 6. Sigmoid diverticulosis. 7. RAMEZ degrades images in the pelvis. 8. No other acute findings. Laboratory Results WBC 7.2 10^3/uL (4.0-10.0) 11/27/22 11:55 RBC 4.38 10^6/uL (4.1-5.3) 11/27/22 11:55 Hgb 13.6 g/dL (11.5-15.3) 11/27/22 11:55 Hct 42.4 % (37.0-47.0) 11/27/22 11:55 MCV 96.8 fl (81-99) 11/27/22 11:55 MCH 31.1 pg (28.0-34.0) 11/27/22 11:55 MCHC 32.1 g/dL (30.0-36.0) 11/27/22 11:55 RDW 13.0 % (12.1-15.1) 11/27/22 11:55 Plt Count 369 10^3/cmm (130-400) 11/27/22 11:55 MPV 10.5 fL (7.4-10.4) H 11/27/22 11:55 Neut % (Auto) 62.2 % 11/27/22 11:55 Lymph % (Auto) 25.6 % 11/27/22 11:55 Coleman % (Auto) 9.4 % 11/27/22 11:55 Eos % (Auto) 1.9 % 11/27/22 11:55 Baso % (Auto) 0.6 % 11/27/22 11:55 Neut # (Auto) 4.48 10^3/uL (1.8-7.7) 11/27/22 11:55 Lymph # (Auto) 1.8 10^3/uL (0.8-4.8) 11/27/22 11:55 Coleman # (Auto) 0.7 10^3/uL (0.2-0.9) 11/27/22 11:55 Eos # (Auto) 0.1 10^3/uL (0.0-0.8) 11/27/22 11:55 Baso # (Auto) 0.0 10^3/uL (0.0-0.1) 11/27/22 11:55 Nucleated RBC % (auto) 0 % 11/27/22 11:55 Nucleated RBCs # 0.0 /100WBC 11/27/22 11:55 Sodium 141 mmol/L (136-145) 11/27/22 11:55 Potassium 3.7 mmol/L (3.5-5.1) 11/27/22 11:55 Chloride 101 mmol/L (98-107) 11/27/22 11:55 Carbon Dioxide 28 mmol/L (22-29) 11/27/22 11:55 Anion Gap 15.7 (5-19) 11/27/22 11:55 BUN 8 mg/dL (8-23) 11/27/22 11:55 Creatinine 0.5 mg/dL (0.5-0.9) 11/27/22 11:55 GFR Calculation 123.1 mL/min (90-130) 11/27/22 11:55 Glucose 94 mg/dL (65-115) 11/27/22 11:55 Calculated Osmolality 290 mOsm/kg (285-295) 11/27/22 11:55 Calcium 9.9 mg/dL (8.5-10.5) 11/27/22 11:55 Total Bilirubin 0.3 mg/dL (0.15-1.2) 11/27/22 11:55 AST 20 U/L (0-32) 11/27/22 11:55 ALT 14 U/L (0-33) 11/27/22 11:55 Alkaline Phosphatase 68 U/L (35-105) 11/27/22 11:55 Troponin T Baseline 7 ng/L (0-10) 11/27/22 11:55 Troponin T 120 Minute 6.81 ng/L (0-10) 11/27/22 13:54 Delta Troponin T -0.19 ABS# (0-10) L 11/27/22 13:54 Total Protein 6.9 g/dL (6.6-8.7) 11/27/22 11:55 Albumin 4.4 g/dL (3.5-5.2) 11/27/22 11:55 Globulin 2.5 g/dL (1.3-4.6) 11/27/22 11:55 EKG Data EKG 1: I personally reviewed and interpreted this EKG as follows: Interpretation: Contemporaneous review of resting EKG reveals a ventricular rate of 97 bpm. Normal UT interval, QRS duration, corrected QT interval. Normal axis. No acute ST-T wave changes noted at this time. Discharge Plan Discharge Patient Disposition: Home Clinical Impression: Abdominal pain, epigastric, Gastritis Condition: Stable Prescriptions: New pantoprazole [Protonix] 40 mg tablet,delayed release (DR/EC) 40 mg PO QAM 42 Days Qty: 42 0RF sucralfate [Carafate] 1 gram tablet 1 g PO BID 56 Days Qty: 112 2RF Discontinued esomeprazole magnesium 20 mg capsule,delayed release(DR/EC) 20 mg PO DAILY Qty: 90 0RF No Action multivitamin Tablet 1 tab PO DAILY sertraline [Zoloft] 50 mg tablet 50 mg PO DAILY Qty: 90 2RF Rx Instructions: take 100mg + 50 mg tabs daily prednisone 10 mg tablet 10 mg PO DAILY Qty: 90 1RF lisinopril 40 mg tablet 40 mg PO BID Qty: 180 3RF carisoprodol 350 mg tablet 350 mg PO BID PRN (Reason: muscle pain) Qty: 60 3RF Rx Instructions: use sparingly fluticasone propionate [Flovent HFA] 44 mcg/actuation HFA aerosol inhaler 1 puff inhalation BID Qty: 10.6 6RF alprazolam 1 mg tablet 1 mg PO TID PRN (Reason: Nausea) Qty: 90 2RF Rx Instructions: use as needed atorvastatin 20 mg tablet 20 mg PO QPM sertraline 100 mg tablet 100 mg PO DAILY clopidogrel 75 mg tablet 75 mg PO DAILY amlodipine 10 mg tablet 10 mg PO DAILY gabapentin 300 mg capsule 300 mg PO QID Centrum Silver Women 8 mg iron-400 mcg-300 mcg Tablet 1 tab PO DAILY Discharge Orders: Discharge ED (Routine); Ordered 11/27/22 Ordered By: Rigoberto Seay Referrals: Brent Doyle FNP [Primary Care Provider] - 1 month Discharge Diet: Usual diet Discharge Activity: Increase activity as tolerated Patient Instructions: Abdominal Pain (ED), Opioid Safety, Pain Management Activity Restrictions/Additional Instructions: As we discussed we have put you on 2 medications to help with your stomach discomfort for the next 2 months. After 2 months she will be taking 1 of those medications. To continue those medications you should have your regular prescriber continue those for long-term use. Reduce your prednisone dose in conjunction with your advanced registered nurse as soon as feasible. If you develop any new or worsening symptoms return to this or the nearest emergency department as soon as possible. Do not smoke, do not take Motrin Aleve etc. Coding Level of Care Code ED Senior Manufacturing Engineer for Kailey Crook
[2022-11-27] MEDS: pantoprazole 40 mg SDV IVP (14:04)
[2022-11-27 14:15] LABS: Troponin(5th) Baseline 7 ng/L (0-10)
[2022-11-27] MEDS: iohexol 350 mg/mL 500 mL Btl (per mL) IV (14:15)
[2022-11-27 14:26] LABS: Troponin 5 2HR 6.81 ng/L (0-10)
[2022-11-27 14:32] LABS: Troponin 5 2HR Delta -0.19 ABS# (0-10)
--- NOTE | 2022-11-27 15:12 | ECG_ITS ---
[facility] Test Date: 2022-11-27 Pat Name: aNtaly Luther Department: Room: Gender: Female Res Counselor: : 1955 Requested By: Rigoberto Seay Order Number: [id number] Wendy MD: Nina Aparicio M.D. Measurements Intervals [place] Rate: 97 P: 69 TN: 187 QRS: 92 QRSD: 105 T: 44 QT: 351 QTc: 446 Interpretive Statements SINUS RHYTHM BORDERLINE RIGHT AXIS DEVIATION [QRS AXIS > 90] Compared to ECG 11/27/2022 13:27:51 No significant changes Electronically Signed On 11-28-2022 0:52:24 CDT by Nina Aparicio M.D. [email or web address]
[2022-11-27 15:26] LABS: Basophils % 0.6 %; Eosinophils # 0.1 10^3/uL (0.0-0.8); Eosinophils % 1.9 %; Hematocrit 42.4 % (37.0-47.0); Hemoglobin 13.6 g/dL (11.5-15.3); Lymphocytes # 1.8 10^3/uL (0.8-4.8); Lymphocytes % 25.6 %; Mean Corpuscular HGB Conc 32.1 g/dL (30.0-36.0); Mean Corpuscular Hemoglobin 31.1 pg (28.0-34.0); Mean Corpuscular Volume 96.8 fl (81-99); Mean Platelet Volume 10.5 fL (7.4-10.4); Monocytes # 0.7 10^3/uL (0.2-0.9); Monocytes % 9.4 %; Neutrophils # 4.48 10^3/uL (1.8-7.7); Neutrophils % 62.2 %; Nucleated Red Blood Cells % 0 %; Platelet Count 369 10^3/cmm (130-400); Red Blood Count 4.38 10^6/uL (4.1-5.3); White Blood Count 7.2 10^3/uL (4.0-10.0)
[2022-11-27 15:38] LABS: Alanine Aminotransferase 14 U/L (0-33); Albumin Level 4.4 g/dL (3.5-5.2); Alkaline Phosphatase 68 U/L (35-105); Anion Gap 15.7 (5-19); Aspartate Amino Transferase 20 U/L (0-32); Blood Urea Nitrogen 8 mg/dL (8-23); Calcium 9.9 mg/dL (8.5-10.5); Carbon Dioxide 28 mmol/L (22-29); Chloride 101 mmol/L (98-107); Globulin 2.5 g/dL (1.3-4.6); Glomerular Filtration Rate 123.1 mL/min (90-130); Glucose 94 mg/dL (65-115); Osmolality Calculated 290 mOsm/kg (285-295); Potassium 3.7 mmol/L (3.5-5.1); Sodium 141 mmol/L (136-145); Total Bilirubin 0.3 mg/dL (0.15-1.2); Total Protein 6.9 g/dL (6.6-8.7)
== END 2022-11-27 17:05 | disposition home or self-care (01) ==
PROVIDERS: Emergency Provider Emergency Medicine; PCP Nurse Practitioner Family
DX: K29.70 Gastritis, unspecified, without bleeding (principal); Z79.02 Long term (current) use of antithrombotics/antiplatelets; K76.0 Fatty (change of) liver, not elsewhere classified; K57.30 Diverticulosis of large intestine without perforation or abscess without bleeding; I10 Essential (primary) hypertension; Z86.73 Personal history of transient ischemic attack (TIA), and cerebral infarction without residual deficits
CPT/HCPCS: 36415; 71045; 74177; 80053; 84484; 85025; 93005; 96374; 99285; C9113; Q9967

== ENCOUNTER → 2023-01-16 14:36 | Outpatient (BNVA) | payer MEDICARE, SELFPAY | PROVIDERS: PCP Nurse Practitioner Family; Visit Provider Nurse Practitioner | DX: T14.8XXA Other injury of unspecified body region, initial encounter (principal); W57.XXXA Bitten or stung by nonvenomous insect and other nonvenomous arthropods, initial encounter | CPT/HCPCS: 86000; 86618; 86666; 86757 ==

== ENCOUNTER 2023-01-30 09:45 | Outpatient (CLI) | payer MEDICARE, SELFPAY ==
--- NOTE | 2023-01-30 09:56 | MM_ITS ---
WS: [id number] BILATERAL SCREENING DIGITAL TOMOSYNTHESIS MAMMOGRAM WITH CAD HISTORY: SCREENING COMPARISON: 12/15/2020, 11/04/2015 Bilateral CC and MLO views with tomosynthesis and synthetic mammography submitted. Computer aided det ection analyzed. Breast composition: There are scattered areas of fibroglandular density. No suspicious masses, microc alcifications or architectural distortion. Well-circumscribed mass in the anterior lateral RIGHT adan st near 9:00 measuring 13 mm. This mass has been described on multiple prior imaging studies and decr eased in size from 21 mm in 2020. Benign calcifications. MM/[place] [id number] IMPRESSION: BI-RADS: 2-Benign FOLLOW UP: 1 Year Follow-up
[2023-01-30 10:58] LABS: Basophils # 0.1 10^3/uL (0.0-0.1); Basophils % 0.8 %; Eosinophils # 0.3 10^3/uL (0.0-0.8); Hematocrit 42.6 % (37.0-47.0); Hemoglobin 13.7 g/dL (11.5-15.3); Lymphocytes # 2.4 10^3/uL (0.8-4.8); Mean Corpuscular HGB Conc 32.2 g/dL (30.0-36.0); Mean Corpuscular Hemoglobin 30.6 pg (28.0-34.0); Mean Corpuscular Volume 95.1 fl (81-99); Mean Platelet Volume 10.6 fL (7.4-10.4); Monocytes # 0.6 10^3/uL (0.2-0.9); Monocytes % 8.2 %; Neutrophils # 4.09 10^3/uL (1.8-7.7); Neutrophils % 54.7 %; Nucleated Red Blood Cells % 0 %; Platelet Count 353 10^3/cmm (130-400); Red Blood Count 4.48 10^6/uL (4.1-5.3); Red Cell Distribution Width 12.7 % (12.1-15.1); White Blood Count 7.5 10^3/uL (4.0-10.0)
[2023-01-30 11:24] LABS: Alanine Aminotransferase 19 U/L (0-33); Albumin Level 4.2 g/dL (3.5-5.2); Alkaline Phosphatase 86 U/L (35-105); Aspartate Amino Transferase 21 U/L (0-32); Globulin 2.7 g/dL (1.3-4.6); Glomerular Filtration Rate 122.7 mL/min (90-130); Total Bilirubin 0.2 mg/dL (0.15-1.2); Total Protein 6.9 g/dL (6.6-8.7)
[2023-01-30 11:37] LABS: 25 Hydroxy Vitamin D 39 ng/mL (30-100)
== END 2023-01-30 09:46 | disposition home or self-care (01) ==
PROVIDERS: PCP Nurse Practitioner Family; Referring Provider Internal Medicine Rheumatology; Visit Provider Nurse Practitioner Family
DX: Z12.31 Encounter for screening mammogram for malignant neoplasm of breast (principal); M05.79 Rheumatoid arthritis with rheumatoid factor of multiple sites without organ or systems involvement; Z79.899 Other long term (current) drug therapy
CPT/HCPCS: 36415; 77063; 77067; 80076; 82306; 82565; 85025

== ENCOUNTER → 2023-02-06 10:52 | Outpatient (BNVA) | payer MEDICARE, SELFPAY | PROVIDERS: PCP Nurse Practitioner Family; Visit Provider Internal Medicine Rheumatology | DX: M05.79 Rheumatoid arthritis with rheumatoid factor of multiple sites without organ or systems involvement (principal); Z79.899 Other long term (current) drug therapy; Z71.89 Other specified counseling; M79.7 Fibromyalgia; M19.041 Primary osteoarthritis, right hand; M19.042 Primary osteoarthritis, left hand | CPT/HCPCS: 99214 ==

== ENCOUNTER → 2023-02-14 13:36 | Outpatient (BNVA) | payer MEDICARE, SELFPAY | PROVIDERS: PCP Nurse Practitioner Family; Visit Provider Nurse Practitioner | DX: R69 Illness, unspecified (principal) | CPT/HCPCS: 87400 ==

== ENCOUNTER 2023-03-26 11:30 | Oncology outpatient (recurring) (ONCR) | payer MEDICARE, SELFPAY ==
[2023-03-12 12:15] VITALS: BP 128/77; PULSE 100; RESP 20; TEMP 36.6; O2SAT 98
[2023-03-12 12:26] VITALS: BMI 26.2
[2023-03-12] MEDS: methylPREDNISolone sod succ 125 mg/2 mL INJ 40 MG IVP (13:20)
[2023-03-12] MEDS: acetaminophen 325 mg Tablet 650 MG PO (13:21)
[2023-03-12] MEDS: sodium chloride 0.9% 250 ML 75 ML IV (13:22)
[2023-03-12] MEDS: diphenhydrAMINE 50 mg/mL SDV 1mL 25 MG IVP (13:26)
[2023-03-12 16:45] VITALS: BP 148/90; PULSE 95; RESP 17; TEMP 36.4; O2SAT 95
[2023-03-26] VITALS (8 sets, daily range): BP systolic 117–131; BP diastolic 73–76; PULSE 93–101; RESP 18; TEMP 36.1–36.6; O2SAT 95–98
[2023-03-26] MEDS: acetaminophen 325 mg Tablet 650 MG PO (12:13)
[2023-03-26] MEDS: diphenhydrAMINE 50 mg/mL SDV 1mL 25 MG IVP (12:14)
[2023-03-26] MEDS: methylPREDNISolone sod succ 40 mg SDV IVP (12:27)
[2023-03-26] MEDS: sodium chloride 0.9% 250 ML 75 ML IV (12:28)
== END 2023-04-01 23:59 | disposition home or self-care (01) ==
PROVIDERS: PCP Nurse Practitioner Family; Visit Provider Internal Medicine Rheumatology
DX: M05.89 Other rheumatoid arthritis with rheumatoid factor of multiple sites (principal)
CPT/HCPCS: 96375; 96413; 96415; J1200; J2920; J2930; J7050; Q5104

== ENCOUNTER 2023-04-23 07:56 | Oncology outpatient (recurring) (ONCR) | payer MEDICARE, SELFPAY ==
[2023-04-23] VITALS (8 sets, daily range): BP systolic 132–170; BP diastolic 65–80; PULSE 89–103; RESP 16; TEMP 36.6–37.1; O2SAT 94–98
[2023-04-23] MEDS: sodium chloride 0.9% 250 ML 75 ML IV (08:38)
[2023-04-23] MEDS: acetaminophen 325 mg Tablet 650 MG PO (08:39)
[2023-04-23] MEDS: diphenhydrAMINE 50 mg/mL SDV 1mL 25 MG IVP (08:41)
[2023-04-23] MEDS: methylPREDNISolone sod succ 40 mg SDV IVP (08:42)
== END 2023-05-02 23:59 | disposition home or self-care (01) ==
LOC: ONCMED 07:57
PROVIDERS: PCP Nurse Practitioner Family; Visit Provider Internal Medicine Rheumatology
DX: M05.89 Other rheumatoid arthritis with rheumatoid factor of multiple sites (principal)
CPT/HCPCS: 96375; 96413; 96415; J1200; J2920; J7050; Q5104

== ENCOUNTER 2023-05-29 09:40 | Outpatient (CLI) | payer MEDICARE, SELFPAY ==
[2023-05-29 10:14] LABS: Basophils # 0.1 10^3/uL (0.0-0.1); Basophils % 0.6 %; Eosinophils # 0.3 10^3/uL (0.0-0.8); Hematocrit 46.9 % (36-47); Lymphocytes # 2.1 10^3/uL (0.8-4.8); Lymphocytes % 24.9 %; Mean Corpuscular Hemoglobin 30.9 pg (27-33); Mean Corpuscular Volume 93.6 fl (85-98); Monocytes # 0.7 10^3/uL (0.2-0.9); Monocytes % 8.9 %; Neutrophils % 62.2 %; Nucleated Red Blood Cells % 0 %; Platelet Count 370 10^3/cmm (157-399); Red Blood Count 5.01 10^6/uL (3.85-5.65); Red Cell Distribution Width 13.8 % (12.1-15.1); White Blood Count 8.35 10^3/uL (3.29-11.43)
[2023-05-29 10:32] LABS: Alanine Aminotransferase 29 U/L (0-33); Albumin Level 4.6 g/dL (3.5-5.2); Alkaline Phosphatase 91 U/L (35-105); Aspartate Amino Transferase 28 U/L (0-32); Globulin 3.2 g/dL (1.3-4.6); Glomerular Filtration Rate 122.7 mL/min (90-130); Total Bilirubin 0.3 mg/dL (0.15-1.2); Total Protein 7.8 g/dL (6.6-8.7)
[2023-06-03 09:59] LABS: Quantiferon Mitogen >10.00 IU/mL; Quantiferon Nil 0.03 IU/mL; Quantiferon Plus TB1 0.02 IU/mL; Quantiferon Plus TB2 0.01 IU/mL; Quantiferon TB Gold NEGATIVE (NEGATIVE)
== END 2023-05-29 09:41 | disposition home or self-care (01) ==
PROVIDERS: PCP Nurse Practitioner Family; Visit Provider Internal Medicine Rheumatology
DX: M05.79 Rheumatoid arthritis with rheumatoid factor of multiple sites without organ or systems involvement (principal); Z79.899 Other long term (current) drug therapy; Z11.1 Encounter for screening for respiratory tuberculosis; M79.7 Fibromyalgia; M19.042 Primary osteoarthritis, left hand; M19.041 Primary osteoarthritis, right hand; Z71.89 Other specified counseling
CPT/HCPCS: 80076; 82565; 85025; 86140; 86480; 99214

== ENCOUNTER 2023-07-11 07:42 | Oncology outpatient (recurring) (ONCR) | payer MEDICARE, SELFPAY ==
[2023-07-11 09:46] LABS: Basophils % 0.5 %; Eosinophils % 0.5 %; Hematocrit 42.5 % (36-47); Lymphocytes # 1.9 10^3/uL (0.8-4.8); Lymphocytes % 30.6 %; Mean Corpuscular HGB Conc 33.2 g/dL (30-55); Mean Corpuscular Hemoglobin 31.3 pg (27-33); Mean Corpuscular Volume 94.2 fl (85-98); Mean Platelet Volume 10.4 fL (7.4-10.4); Monocytes # 0.2 10^3/uL (0.2-0.9); Monocytes % 3.7 %; Neutrophils # 4.03 10^3/uL (1.8-7.7); Neutrophils % 64.4 %; Nucleated Red Blood Cells % 0 %; Platelet Count 324 10^3/cmm (157-399); Red Blood Count 4.51 10^6/uL (3.85-5.65); Red Cell Distribution Width 13.4 % (12.1-15.1); White Blood Count 6.25 10^3/uL (3.29-11.43)
[2023-07-11] MEDS: acetaminophen 325 mg Tablet 650 MG PO (09:46)
[2023-07-11] MEDS: sodium chloride 0.9% 250 ML 75 ML IV (09:46)
[2023-07-11] MEDS: methylPREDNISolone sod succ 40 mg SDV IVP (09:47)
[2023-07-11] MEDS: diphenhydrAMINE 50 mg/mL SDV 1mL 25 MG IVP (09:51)
[2023-07-11 09:55] LABS: Erythrocyte Sedimentation Rate 18 mm/hr (0-15)
[2023-07-11 10:15] VITALS: BP 133/79; PULSE 89; RESP 16; TEMP 36.7; O2SAT 98
[2023-07-11 10:30] VITALS: BP 120/84; PULSE 90; RESP 16; TEMP 36.6; O2SAT 98
[2023-07-11 10:30] LABS: Alanine Aminotransferase 32 U/L (0-33); Albumin Level 4.2 g/dL (3.5-5.2); Alkaline Phosphatase 72 U/L (35-105); Creatinine Clr Calc Pharmacy 65.9685; Globulin 2.7 g/dL (1.3-4.6); Glomerular Filtration Rate 122.7 mL/min (90-130); Total Bilirubin 0.3 mg/dL (0.15-1.2); Total Protein 6.9 g/dL (6.6-8.7)
[2023-07-11 10:45] VITALS: BP 134/82; PULSE 88; RESP 16; TEMP 36.7; O2SAT 97
[2023-07-11 10:54] LABS: Aspartate Amino Transferase 36 U/L (0-32)
[2023-07-11 11:00] VITALS: BP 137/83; PULSE 90; RESP 16; TEMP 36.7; O2SAT 97
[2023-07-11 11:30] VITALS: BP 137/84; PULSE 92; RESP 16; TEMP 36.5; O2SAT 97
[2023-07-11 12:40] VITALS: BP 133/79; PULSE 98; RESP 16; TEMP 36.6; O2SAT 98
== END 2023-08-01 23:59 | disposition home or self-care (01) ==
PROVIDERS: PCP Nurse Practitioner Family; Visit Provider Internal Medicine Rheumatology
DX: M05.89 Other rheumatoid arthritis with rheumatoid factor of multiple sites (principal)
CPT/HCPCS: 80076; 82565; 85025; 85651; 96365; 96366; 96374; 96375; J1200; J2920; J7050; Q5104

== ENCOUNTER → 2023-07-16 13:34 | Outpatient (BNVA) | payer MEDICARE, SELFPAY | PROVIDERS: PCP Nurse Practitioner Family; Visit Provider Student in an Organized Health Care Education/Training Program | DX: M79.641 Pain in right hand (principal); M79.642 Pain in left hand; G56.23 Lesion of ulnar nerve, bilateral upper limbs; R20.0 Anesthesia of skin; R20.2 Paresthesia of skin; M19.041 Primary osteoarthritis, right hand; M19.042 Primary osteoarthritis, left hand | CPT/HCPCS: 73130; 99204 ==

== ENCOUNTER → 2023-08-09 09:20 | Outpatient (BNVA) | payer MEDICARE, SELFPAY | PROVIDERS: PCP Nurse Practitioner Family; Referring Provider Nurse Practitioner Family; Visit Provider Surgery | DX: Z12.11 Encounter for screening for malignant neoplasm of colon (principal); K21.9 Gastro-esophageal reflux disease without esophagitis | CPT/HCPCS: 99024; 99204 ==

== ENCOUNTER 2023-08-22 07:31 | Oncology outpatient (recurring) (ONCR) | payer MEDICARE, SELFPAY ==
[2023-08-22] VITALS (9 sets, daily range): BP systolic 122–151; BP diastolic 76–85; PULSE 78–96; RESP 16–17; TEMP 35.7–36.6; O2SAT 96–98
[2023-08-22] MEDS: sodium chloride 0.9% 250 ML 75 ML IV (08:18)
[2023-08-22] MEDS: diphenhydrAMINE 50 mg/mL SDV 1mL 25 MG IVP (08:19)
[2023-08-22] MEDS: methylPREDNISolone sod succ 40 mg/mL INJ IVP (08:19)
[2023-08-22] MEDS: acetaminophen 325 mg Tablet 650 MG PO (08:19)
== END 2023-09-01 23:59 | disposition home or self-care (01) ==
LOC: ONCMED 07:31
PROVIDERS: PCP Nurse Practitioner Family; Visit Provider Internal Medicine Rheumatology
DX: M05.89 Other rheumatoid arthritis with rheumatoid factor of multiple sites (principal)
CPT/HCPCS: 96367; 96413; 96415; J1200; J2920; J7050; Q5104

== ENCOUNTER 2023-08-28 06:29 | Day surgery (SDC) | payer MEDICARE, SELFPAY ==
--- NOTE | 2023-08-28 06:26 | W.PM.OPSUD ---
Surgery/Procedure H&P Update DATE OF PROCEDURE: August 28, 2023 DATE H&P PERFORMED: 08/09/23 H&P UPDATE INFORMATION: I have reviewed H&P completed within last 30 days, I have examined patient prior to procedure, No changes to prior documentation and H&P is in [facility] EMR on date indicated PLANNED PROCEDURE: Operation Date: 08/28/23 07:45 Proposed Procedures p [id number] egd [id number] colon G0121 screen colon A risk Z12.11, K21.9(Not Applicable) - Jorden Aguero MD s Colonoscopy(Not Applicable) - Jorden Aguero MD
[2023-08-28 06:49] VITALS: BP 138/92; PULSE 107; RESP 18; TEMP 36.3; O2SAT 96; BMI 29.2
[2023-08-28] MEDS: sodium chloride 0.9% 1,000 ML 30 ML IV (07:03)
--- NOTE | 2023-08-28 07:13 | ANES.PREANE2 ---
Pre-Anesthetic Assessment Height/Weight: Height 1.57 m Weight 72.575 kg Temp Pulse Resp BP Pulse Ox O2 Del Method 97.4 F L 107 H 18 138/92 96 Room Air 08/28/23 06:49 08/28/23 06:49 08/28/23 06:49 08/28/23 06:49 08/28/23 06:49 08/28/23 06:49 Operation Date: 08/28/23 07:45 Proposed Procedures p [id number] egd [id number] colon G0121 screen colon A risk Z12.11, K21.9(Not Applicable) - Jorden Aguero MD s Colonoscopy(Not Applicable) - Jorden Aguero MD Familial anesthetic complications: None Was Beta Fouzia taken within 24 hours: N/A Was Clonidine taken within 24 hours: N/A Last intake: Intake Last Liquid Date 08/27/23 Last Liquid Time 20:00 Last Solid Date 08/26/23 Last Solid Time 19:30 Social Tobacco and No alcohol Exam alert, oriented x 3, clear to auscultation bilaterally and regular rate & rhythm Airway Mallampati: Class I Dentition: false CV/HEM Hypertension GI Gastroesophageal Reflux Disease Metabolic Hyperlipidemia [facility] Fibromyalgia and Rheumatoid Arthritis Neuropsych Transient Ischemic Attack (> 1 year ago) Anesthetic Plan ASA status: 3 Anesthesia: MAC Risk of > 500 ml blood loss (7ml/kg in children): No Medications/Allergies Home Medications Medication Instructions Recorded Confirmed Last Taken Type fluticasone propionate 44 1 puff inhalation BID #10.6 grams 11/14/22 08/23/23 08/27/23 Rx mcg/actuation HFA aerosol inhaler (Flovent HFA) [id number] 8 mg-folic 400 1 tab PO DAILY 11/27/22 08/23/23 08/27/23 History mcg-K 50 mcg-lutein 300 mcg tablet (Centrum Silver Women) lisinopril 40 mg tablet 40 mg PO BID #180 tabs 03/11/23 08/23/23 08/27/23 Rx alprazolam 1 mg tablet 1 mg PO TID PRN Nausea #90 tabs 05/28/23 08/23/23 08/28/23 Rx acetaminophen 300 mg-codeine 60 mg 1 tab PO Q8H PRN pain #90 tabs 05/29/23 08/23/23 08/27/23 Rx tablet prednisone 10 mg tablet 10 mg PO DAILY PRN for flares #90 05/29/23 08/23/23 08/23/23 Rx tabs amlodipine 10 mg tablet 10 mg PO DAILY #90 tabs 06/12/23 08/23/23 08/28/23 Rx atorvastatin 20 mg tablet 20 mg PO QPM #90 tabs 06/12/23 08/23/23 08/27/23 Rx clopidogrel 75 mg tablet 75 mg PO DAILY #90 tabs 06/12/23 08/23/23 08/23/23 Rx levalbuterol HCl 0.63 mg/3 mL 0.63 mg (3 mL) inhalation TID PRN 06/25/23 08/23/23 08/23/23 Rx solution for nebulization shortness of breath or wheezing #75 mL carisoprodol 350 mg tablet 350 mg PO BID PRN muscle pain #60 07/11/23 08/23/23 08/28/23 Rx tabs esomeprazole magnesium 40 mg 40 mg PO DAILY #90 caps 08/07/23 08/23/23 08/27/23 Rx capsule,delayed release (Nexium) gabapentin 300 mg capsule 300 mg PO QID #120 caps 08/22/23 08/23/23 08/27/23 Rx infliximab-abda 100 mg intravenous 100 mg IV .Q6 WEEKS 08/23/23 08/23/23 08/22/23 History solution (Renflexis) Allergies Allergy/AdvReac Type Severity Reaction Status Date / Time tramadol Allergy algy-rash Verified 08/09/23 10:06 hydrocodone AdvReac ADR-Agitate Verified 08/09/23 10:06 d Current Medications Generic Name Dose Route Start Last Admin Trade Name Freq PRN Reason Stop Dose Admin Sodium Chloride 1,000 mls @ 30 mls/hr 08/28/23 06:45 08/28/23 07:03 Sodium Chloride 0.9% IV 30 mls/hr .Q24H MARITA Administration PFSH Anesthesia Medical History Osteoarthritis of hands, bilateral Elevated cholesterol Diagnosed in 2017 and is currently on medication managed by her primary care provider. 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 This is being managed by her primary care provider. Anxiety and depression Diagnosed in her early 40s and is on medication managed by her primary care provider. She does not have a therapist No pertinent past medical history Denies diabetes, asthma, seizures, DVT/PE PCP: RORY Koch Seropositive rheumatoid arthritis of multiple sites Osteoarthritis Fibromyalgia Surgical History H/O knee surgery Arthroscopic right knee surgery x2 History of hysteroscopy At the age of 25 for removal of an embedded coil IUD. Status post hip replacement Right hip---2014 Left hip---2027 [facility] History of total right knee replacement 2009 H/O cervical spine surgery In her 40s H/O: hysterectomy Age of 35--had heavy bleeding and endometriosis and had a vaginal hysterectomy. Ovaries were not removed. She was told there is no cancer or precancer. Family History Sister Colon cancer Diagnosed at age 52 Father Heart disease Hypertension Mother Heart disease Hypertension Denies family history of Ovarian cancer Diabetes Hyperlipidemia Breast cancer Uterine cancer Thyroid disease Stroke Social History Smoking and tobacco/nicotine status: current every day tobacco/nicotine user cigarettes Packs smoked per day: 0.5 Alcohol intake: current Alcohol intake frequency: holidays/special occasions only Substance/Drug Use: never Current occupational status: employed Current occupation: [employer] facility Data Anesthesia Cardiac Studies: No Data to Display
[2023-08-28 08:10] VITALS: BP 115/73; PULSE 86; RESP 20; TEMP 36.1; O2SAT 98
[2023-08-28 08:20] VITALS: BP 101/72; PULSE 84; RESP 20; O2SAT 98
[2023-08-28 08:30] VITALS: BP 144/88; PULSE 90; RESP 20; O2SAT 97
--- NOTE | 2023-08-28 08:45 | ANE.PACU2 ---
Inpatient post-anesthesia follow up: Airway intact: Yes Vital signs: Temperature 97.0 F Pulse Rate 90 Respiratory Rate 20 Blood Pressure 144/88 Pulse Oximetry 97 Oxygen Delivery Me thod Room Air Oxygen Flow Rate 1 Fraction of Inspir ed Oxygen Hydration adequate: Yes Nausea and vomiting: No Pain level: 1 Mental status: Baseline
== END 2023-08-28 08:46 | disposition home or self-care (01) ==
PROVIDERS: PCP Nurse Practitioner Family; Visit Provider Surgery
PROC: 0DJ08ZZ Inspection of Upper Intestinal Tract, Via Natural or Artificial Opening Endoscopic (ICD-10-PCS; CPT 43235; principal; 2023-08-28 07:45)
PROC: 0DJD8ZZ Inspection of Lower Intestinal Tract, Via Natural or Artificial Opening Endoscopic (ICD-10-PCS; CPT 45378; 2023-08-28 07:45)
DX: Z12.11 Encounter for screening for malignant neoplasm of colon (principal); K21.9 Gastro-esophageal reflux disease without esophagitis; K57.30 Diverticulosis of large intestine without perforation or abscess without bleeding; K64.8 Other hemorrhoids; K29.50 Unspecified chronic gastritis without bleeding; I10 Essential (primary) hypertension; E78.5 Hyperlipidemia, unspecified; M79.7 Fibromyalgia; M06.9 Rheumatoid arthritis, unspecified; Z86.73 Personal history of transient ischemic attack (TIA), and cerebral infarction without residual deficits; M05.9 Rheumatoid arthritis with rheumatoid factor, unspecified; F17.210 Nicotine dependence, cigarettes, uncomplicated
CPT/HCPCS: 43239; 88305; 88342; G0121; J2704; J7030

== ENCOUNTER → 2023-09-19 14:45 | Outpatient (BNVA) | payer MEDICARE, SELFPAY | PROVIDERS: PCP Nurse Practitioner Family; Visit Provider Surgery | DX: R20.0 Anesthesia of skin (principal); R20.2 Paresthesia of skin; K21.9 Gastro-esophageal reflux disease without esophagitis; Z09 Encounter for follow-up examination after completed treatment for conditions other than malignant neoplasm; M54.12 Radiculopathy, cervical region | CPT/HCPCS: 95885; 95911; 99214 ==

== ENCOUNTER 2023-09-25 10:34 | Outpatient (CLI) | payer MEDICARE, SELFPAY ==
[2023-09-25 10:56] LABS: Basophils # 0.1 10^3/uL (0.0-0.1); Basophils % 0.5 %; Eosinophils # 0.2 10^3/uL (0.0-0.8); Eosinophils % 2.1 %; Hematocrit 42.9 % (36-47); Lymphocytes # 2.6 10^3/uL (0.8-4.8); Lymphocytes % 28.2 %; Mean Corpuscular HGB Conc 33.1 g/dL (30-55); Mean Corpuscular Hemoglobin 31.7 pg (27-33); Mean Corpuscular Volume 95.8 fl (85-98); Mean Platelet Volume 10.1 fL (7.4-10.4); Monocytes # 0.8 10^3/uL (0.2-0.9); Monocytes % 9.2 %; Neutrophils # 5.47 10^3/uL (1.8-7.7); Neutrophils % 59.7 %; Nucleated Red Blood Cells % 0 %; Platelet Count 328 10^3/cmm (157-399); Red Blood Count 4.48 10^6/uL (3.85-5.65); White Blood Count 9.16 10^3/uL (3.29-11.43)
[2023-09-25 11:17] LABS: Alanine Aminotransferase 16 U/L (0-33); Alkaline Phosphatase 78 U/L (35-105); Aspartate Amino Transferase 20 U/L (0-32); C Reactive Protein 5.7 mg/L (0.0-4.9); Glomerular Filtration Rate 122.7 mL/min (90-130); Total Bilirubin 0.3 mg/dL (0.15-1.2)
== END 2023-09-25 10:35 | disposition home or self-care (01) ==
LOC: LAB 10:35
PROVIDERS: PCP Nurse Practitioner Family; Visit Provider Internal Medicine Rheumatology
DX: Z79.899 Other long term (current) drug therapy (principal); M05.79 Rheumatoid arthritis with rheumatoid factor of multiple sites without organ or systems involvement; Z71.89 Other specified counseling; M79.7 Fibromyalgia; M19.041 Primary osteoarthritis, right hand; M19.042 Primary osteoarthritis, left hand
CPT/HCPCS: 36415; 80076; 82565; 85025; 86140; 99214

== ENCOUNTER → 2023-09-27 08:57 | Outpatient (BNVA) | payer MEDICARE, SELFPAY | PROVIDERS: PCP Nurse Practitioner Family; Visit Provider Student in an Organized Health Care Education/Training Program | DX: G56.01 Carpal tunnel syndrome, right upper limb (principal); G56.21 Lesion of ulnar nerve, right upper limb | CPT/HCPCS: 99214 ==

== ENCOUNTER 2023-10-16 09:07 | Day surgery (SDC) | payer MEDICARE, SELFPAY ==
[2023-10-16] VITALS (10 sets, daily range): BP systolic 106–133; BP diastolic 63–75; PULSE 84–92; RESP 12–17; TEMP 36.2–36.6; O2SAT 93–98
[2023-10-16] MEDS: acetaminophen 1,000 MG/100 ML PIGGYBACK 400 MG IV (09:47)
[2023-10-16] MEDS: ketorolac 30 mg/mL INJ IVP (09:48)
[2023-10-16] MEDS: scopolamine 1.5 Patch 1 PATCH TRANSDERMA (09:48)
[2023-10-16] MEDS: sodium chloride 0.9% 1,000 ML 30 ML IV (09:56)
[2023-10-16] MEDS: HYDROmorphone 1 mg/mL INJ 1 mL 0.5 MG IVP (10:04)
[2023-10-16] MEDS: midazolam 1 mg/mL INJ 2 mL 2 MG IVP (10:05)
--- NOTE | 2023-10-16 10:05 | P.ANESASSM_ITS ---
Pre-Anesthetic Assessment Height/Weight: Height 1.57 m Weight 72.575 kg Resp O2 Del Method 16 Room Air 10/16/23 10:04 10/16/23 09:41 Operation Date: 10/16/23 10:50 Proposed Procedures p Carpal Tunnel Release(Right) - Owen Danilo, DO s Ulnar Nerve Transposition/ right ulnar nerve release at Guyon's canal(Right) - Owen Dinwiddie, DO s Cubital Tunnel Release with possible ulnar nerve transposition(Right) - Owen Dinwiddie, DO Familial anesthetic complications: none Was Beta Fouzia taken within 24 hours: N/A Was Clonidine taken within 24 hours: N/A Last intake: Intake Last Liquid Date 10/15/23 Last Liquid Time 22:30 Last Solid Date 10/15/23 Last Solid Time 19:30 Social Tobacco and No alcohol Exam alert, oriented x 3 and regular rate & rhythm Airway Submandibular: within normal limits Cervical ROM: within normal limits Mallampati: Class II Dentition: false (upper) Pulmonary Chronic Obstructive Pulmonary Disease CV/HEM Hypertension GI Gastroesophageal Reflux Disease Metabolic Hyperlipidemia chronic steroid Musc/skel Osteoarthritis/DJD Neuropsych Anxiety and Transient Ischemic Attack On Plavix Anesthetic Plan ASA status: 3 Anesthesia: General and Regional (specify below) (Discussed right interscalene if difficult postop pain) Medications/Allergies Home Medications Medication Instructions Recorded Confirmed Last Taken Type fluticasone propionate 44 1 puff inhalation BID #10.6 grams 11/14/22 10/16/23 10/16/23 Rx mcg/actuation HFA aerosol inhaler (Flovent HFA) [id number] 8 mg-folic 400 1 tab PO DAILY 11/27/22 10/16/23 10/16/23 History mcg-K 50 mcg-lutein 300 mcg tablet (Centrum Silver Women) lisinopril 40 mg tablet 40 mg PO BID #180 tabs 03/11/23 10/16/23 10/15/23 Rx levalbuterol HCl 0.63 mg/3 mL 0.63 mg (3 mL) inhalation TID PRN 06/25/23 10/16/23 10/16/23 Rx solution for nebulization shortness of breath or wheezing #75 mL carisoprodol 350 mg tablet 350 mg PO BID PRN muscle pain #60 07/11/23 10/16/23 10/14/23 Rx tabs esomeprazole magnesium 40 mg 40 mg PO DAILY #90 caps 08/07/23 10/16/23 10/16/23 Rx capsule,delayed release (Nexium) gabapentin 300 mg capsule 300 mg PO QID #120 caps 08/22/23 10/16/23 10/16/23 Rx amlodipine 10 mg tablet 10 mg PO DAILY #90 tabs 09/12/23 10/16/23 10/16/23 Rx atorvastatin 20 mg tablet 20 mg PO QPM #90 tabs 09/12/23 10/16/23 10/15/23 Rx clopidogrel 75 mg tablet 75 mg PO DAILY #90 tabs 09/12/23 10/16/23 10/08/23 Rx acetaminophen 300 mg-codeine 60 mg 1 tab PO TID PRN pain #90 tabs 09/25/23 10/16/23 10/16/23 Rx tablet prednisone 20 mg tablet See Rx Instructions PO .COMPLEX 09/25/23 10/16/23 Unknown Rx PRN joint pain flare #30 tabs prednisone 5 mg tablet 5 mg PO DAILY #90 tabs 09/25/23 10/16/23 10/13/23 Rx alprazolam 1 mg tablet 1 mg PO TID PRN Nausea #90 tabs 10/08/23 10/16/23 10/16/23 Rx Allergies Allergy/AdvReac Type Severity Reaction Status Date / Time tramadol Allergy algy-rash Verified 10/16/23 09:26 hydrocodone AdvReac ADR-Agitate Verified 10/16/23 09:26 d Current Medications Generic Name Dose Route Start Last Admin Trade Name Freq PRN Reason Stop Dose Admin Hydromorphone HCl 0.5 mg 10/16/23 09:48 10/16/23 10:04 Hydromorphone 1 Mg/Ml Inj 1 Ml IVP 0.5 mg ONCE PRN Administration For preop pain/anxiety Sodium Chloride 1,000 mls @ 30 mls/hr 10/16/23 10:00 10/16/23 09:56 Sodium Chloride 0.9% IV 10/17/23 09:59 30 mls/hr .Q24H MARITA Administration Midazolam HCl 2 mg 10/16/23 09:48 10/16/23 10:05 Midazolam 1 Mg/Ml Inj 2 Ml IVP 2 mg ONCE PRN Administration Preop Anxiety PFSH Anesthesia Medical History Osteoarthritis of hands, bilateral Elevated cholesterol Diagnosed in 2017 and is currently on medication managed by her primary care provider. 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 This is being managed by her primary care provider. Anxiety and depression Diagnosed in her early 40s and is on medication managed by her primary care provider. She does not have a therapist No pertinent past medical history Denies diabetes, asthma, seizures, DVT/PE PCP: RORY Koch Seropositive rheumatoid arthritis of multiple sites Osteoarthritis Fibromyalgia Surgical History H/O knee surgery Arthroscopic right knee surgery x2 History of hysteroscopy At the age of 25 for removal of an embedded coil IUD. Status post hip replacement Right hip---2014 Left hip---2027 [facility] [place] History of total right knee replacement 2009 H/O cervical spine surgery In her 40s H/O: hysterectomy Age of 35--had heavy bleeding and endometriosis and had a vaginal hysterectomy. Ovaries were not removed. She was told there is no cancer or precancer. Family History Sister Colon cancer Diagnosed at age 52 Father Heart disease Hypertension Mother Heart disease Hypertension Denies family history of Ovarian cancer Diabetes Hyperlipidemia Breast cancer Uterine cancer Thyroid disease Stroke Social History Smoking and tobacco/nicotine status: current every day tobacco/nicotine user cigarettes Packs smoked per day: 0.5 Alcohol intake: current Alcohol intake frequency: holidays/special occasions only Substance/Drug Use: never Current occupational status: employed Current occupation: [employer] facility Data Anesthesia Cardiac Studies: No Data to Display
--- NOTE | 2023-10-16 10:28 | W.PM.OPSUD ---
Surgery/Procedure H&P Update DATE OF PROCEDURE: October 16, 2023 DATE H&P PERFORMED: 09/27/23 H&P UPDATE INFORMATION: I have reviewed H&P completed within last 30 days, I have examined patient prior to procedure and No changes to prior documentation PREOP DIAGNOSIS: Right carpal tunnel syndrome, right cubital tunnel syndrome, right ulnar ne PRIMARY INDICATION FOR PROCEDURE: Right carpal tunnel syndrome right cubital tunnel syndrome right ulnar nerve entrapment at the wrist (Guyon's canal PLANNED PROCEDURE: Operation Date: 10/16/23 10:50 Proposed Procedures p Carpal Tunnel Release(Right) - DO tonya Stanley Ulnar Nerve Transposition/ right ulnar nerve release at Guyon's canal(Right) - DO tonya Stanley Cubital Tunnel Release with possible ulnar nerve transposition(Right) - Owen Carrasco DO
[2023-10-16] MEDS: ceFAZolin 2,000 MG in sodium chloride 0.9% (plus) 50 ML 100 MG IV (10:39)
[2023-10-16] MEDS: ROPivacaine 0.5% SDV 30 mL 150 MG INJECTION (12:15)
[2023-10-16] MEDS: lidocaine-epi 1% 20 mL INJ INJECTION (12:16)
--- NOTE | 2023-10-16 12:23 | W.PM.BPON ---
Date of Procedure: 10/16/2023 Surgeon: Owen Carrasco DO Cargo Trimmer(s): Leonel Carrasco PA-C Procedure(s) performed: Right Carpal tunnel release Right ulnar nerve release at the wrist (Guyon's canal) Right cubital tunnel release (ulnar nerve decompression at the elbow) Findings of the procedure(s): Patient found to have ulnar nerve entrapment the wrist and elbow as well as median nerve entrapment at the carpal tunnel underwent procedure as planned without issues Estimated blood loss: 10mL Specimen(s) removed: None Post-operative diagnosis: Right ulnar nerve entrapment at the wrist and elbow, carpal tunnel syndrome right
--- NOTE | 2023-10-16 12:27 | PM.OP ---
Operative Report Date of procedure: October 16, 2023 Surgeon: Owen Carrasco DO Optical Instrument Assembler: Leonel Carrasco PA-C: PA was necessary for assistance in this case with hand positioning to execute the procedure, retraction and protection of neurovascular structures as well as to assist with wound closure and dressing application. Procedure: Preop Diagnosis Right Carpal tunnel syndrome RIght ulnar nerve entrapement at wrist and elbow Postop Diagnosis: Same(entrapment at Guyon's canal and cubital tunnel) Procedure done: Right carpal tunnel release Right ulnar nerve release at Guyon's canal (wrist) Right?cubital?tunnel tunnel release (ulnar nerve decompression at elbow) Surgeon: Owen Carrasco DO Estimated blood loss: 10mL Tourniquet? 46 minutes IV fluids: 900mL Complications: None Findings: See operative report narrative Condition: stable Disposition: same day Brief History: Patient's been seen and worked up in the outpatient setting and findings consistent with preoperative diagnosis.? Patient has RIght Carpal Tunnel Syndrome, Right cubital tunnel and Right ulnar entrapment at guyons canal which has been worked up in the outpatient setting has physical exam findings consistent with this. Patient's nerve study consistent with this. Exam findings consistent with preoperative diagnosis. Patient's failed conservative treatment.? As result through shared decision making agreed to proceed with right carpal tunnel release ,?right ulnar nerve release at the wrist and at the elbow. We talked about tx options as nonoperative and operative intervention.? Understands risk benefits complication alternatives surgical nonsurgical treatment options.? Understanding risks pt agrees to proceed with surgical intervention. Understanding these risks pt agrees to proceed with surgery.? Consent obtained in office. Procedure: Patient seen evaluate in the preoperative holding area.? Consent was reviewed and signed with patient.? Correct extremity marked.? Patient seen evaluated by anesthesia department once cleared for surgery was then taken back to the operative suite placed in supine position all bony prominences well-padded patient properly secured to bed.? Right upper extremity placed onto armboard.? Nonsterile tourniquet applied Right upper arm.? Patient then underwent anesthesia per the anesthesia department.? Patient's Right upper extremity was then prepped and draped in standard orthopedic fashion.? Final timeout performed.? Patient received appropriate preoperative antibiotics. Esmarch was used exsanguinate the Right upper extremity.? Tourniquet was insufflated to 250 mmHg. I started with my release of the ulnar nerve distally. An extensive laterally based palmar incision that extended proximal past the wrist crease with a Carmen incision was made directly over Guyon's canal. At this point in time incision was made between the Pisa form and hamate to follow neurovascular bundle of Guyon's canal. sharp scalpel incision was subsequently made through skin and then I switched to Littler dissection scissors. At this point in time I dissected down over top guyons canal release the brevis muscle belly along the hypothenar region to obtain access into Guyon's canal. Thick band of fascia was noted proximally just proximal to the wrist crease this was released and made sure there was complete decompression of the ulnar nerve proximally just prior to Guyon's canal subsequently released guyon canal and direct visualization with sharp scalpel excision as well as Littler dissection scissors with care utilizing my orthopedic physician assistant to protect the neurovascular bundle. At this point in time I continued to perform release of the fascia/the roof of Guyon's canal all the way to its most distal extent and the nerve was found to be completely free and untethered. I then in order to perform release of the deep motor branch I then mobilized my dissection around the ulnar nerve and identified the deep motor branch as it courses towards the underuneath fascia connected with the hamate. I then utilized dissection scissors and under direct visualization completed my release carefully of the fascial bands tethering over top of the deep motor branch. At this point in time the ulnar nerve was completely decompressed through Guyon's canal and ulnar nerve had complete laxity with no areas of entrapment or tethering. No masses were noted within the contents of the guyons canal.? This completed the ulnar nerve release at the wrist. Next I then subsequently visualized from the ulnar aspect of the carpal tunnel. Identified the distal extent as well as proximal extent into the antebrachial fascia. As result approaching the carpal tunnel from the ulnar position just above the hook of the hamate made an incision through the Transverse carpal ligament. I then switched to Littler dissection scissors to complete my dissection and release distally with care to protect neurovascular structures distally. The tendons were healthy within the carpal tunnel. No masses were noted. I then carried my dissection proximally utilizing retraction by my orthopedic physician assistant as well as direct visualization with loupe magnification identify the proximal extent of the carpal tunnel and release this to its entirety as well as identified the median nerve and released the tethering of the antebrachial fascia proximally past the wrist crease into the distal aspect of the forearm with no further evidence of median nerve entrapment. The median overall showed signs of compression and inflammation irritation but overall appeared healthy. Just completed the carpal tunnel revision release. I subsequently irrigated the wound bed and placed a wet Ray-Sue into the incision for later closure. Next marked out the landmarks of the Right elbow of the medial epicondyle and olecranon and made a curvilinear incision following the course of the ulnar nerve at the medial aspect of the elbow.? Sharp scalpel incision was made through skin and subcutaneous tissue.? Next I switched to Littler dissection scissors and spread in plane of the medial antebrachial cutaneous nerve branching which was protected throughout this part of the dissection.? Then I directly came down over the fascia and identified the 2 heads of the FCU fascia and split in the middle and subsequently identified my ulnar nerve distally.? This was then completely released distally under direct visualization and loupe magnification.? Once the nerve was then identified I then subsequently tracked this proximally and released this through Dolan's ligament as well as complete decompression of the nerve proximally all the way past the intermuscular septum.? The nerve was completely released and decompressed both proximally and distally.? I then took the elbow through range of motion and there was no instability or subluxating of the ulnar nerve.? This completed?cubital?tunnel release.? ?Next the wound bed was thoroughly irrigated.? Tourniquet was deflated.? Hemostasis was satisfactory at the?cubital?tunnel release surgery site. I then inspected the carpal tunnel incision and this was found to have satisfactory hemostasis and all this was maintained through bipolar electrocautery.? At this point time I sequentially closed?cubital?tunnel site with 3-0 Vicryl suture in a running horizontal mattress nylon stitch.? ? The guyons canal release surgery was then closed in standard interrupted mattress fashion.? Dressing was Xeroform 4 x 4's ABD Curlex soft roll and an Hesham wrap has a bulky soft dressing and volar splint. Patient was then awakened from anesthesia and taken to PACU in stable condition. Disposition: Patient taken to PACU in stable condition recovering well.? Patient will receive appropriate discharge instructions as well as pain medication postoperatively.? We will follow-up with me in the office in 2 weeks.? Patient understands agrees with current plan.? All questions answered.? pt understands if any questions or concerns and contact the office for follow-up appointment..
--- NOTE | 2023-10-16 12:40 | PM.PACU ---
PACU note Narrative: Patient is a 68-year-old female just underwent a right carpal tunnel, Guyon's canal release and cubital tunnel release. Patient transferred to PACU in stable condition. Pain is well controlled. Dressing on hand is dry and in place. Patient's fingers are warm and well-perfused. Patient can wiggle fingers. normal cap refill under 2 seconds. Patient has normal elbow range of motion. Sensation to hand intact. Exam: awake Disposition: discharged
[2023-10-16] MEDS: acetaminophen-codeine 300-30mg Tablet 1 TAB PO (13:15)
--- NOTE | 2023-10-16 13:37 | ANE.PACU2 ---
Inpatient post-anesthesia follow up: Airway intact: Yes Vital signs: Temperature 98 F Pulse Rate 84 Respiratory Rate 17 Blood Pressure 116/70 Pulse Oximetry 96 Oxygen Delivery Me thod Room Air Oxygen Flow Rate Fraction of Inspir ed Oxygen Hydration adequate: Yes Nausea and vomiting: No Pain level: 3 Mental status: Baseline
== END 2023-10-16 13:45 | disposition home or self-care (01) ==
PROVIDERS: PCP Nurse Practitioner Family; Visit Provider Student in an Organized Health Care Education/Training Program
PROC: (CPT 64721; principal; 2023-10-16 10:40)
PROC: (CPT 64718; 2023-10-16 10:40)
PROC: (CPT 64718; 2023-10-16 10:40)
DX: G56.01 Carpal tunnel syndrome, right upper limb (principal); G56.21 Lesion of ulnar nerve, right upper limb; J44.9 Chronic obstructive pulmonary disease, unspecified; I10 Essential (primary) hypertension; K21.9 Gastro-esophageal reflux disease without esophagitis; E78.5 Hyperlipidemia, unspecified; Z79.52 Long term (current) use of systemic steroids; M19.90 Unspecified osteoarthritis, unspecified site; F41.9 Anxiety disorder, unspecified; Z86.73 Personal history of transient ischemic attack (TIA), and cerebral infarction without residual deficits; Z79.02 Long term (current) use of antithrombotics/antiplatelets; F17.210 Nicotine dependence, cigarettes, uncomplicated
CPT/HCPCS: 64718; 64719; 64721; J0131; J0690; J1170; J1885; J2250; J2405; J2704; J2795; J3010; J7030

== ENCOUNTER 2023-10-22 10:05 | Outpatient (RCR) | payer MEDICARE, SELFPAY | END 2023-10-31 23:59 | disposition home or self-care (01) | LOC: SOT 10:05 | PROVIDERS: Visit Provider Student in an Organized Health Care Education/Training Program | DX: Z47.89 Encounter for other orthopedic aftercare (principal) | CPT/HCPCS: 97760; L3906 ==

== ENCOUNTER → 2023-10-31 10:13 | Outpatient (BNVA) | payer MEDICARE, SELFPAY | PROVIDERS: PCP Nurse Practitioner Family; Visit Provider Student in an Organized Health Care Education/Training Program | DX: M54.12 Radiculopathy, cervical region (principal) | CPT/HCPCS: 99213 ==

== ENCOUNTER 2023-11-07 11:11 | Outpatient (RCR) | payer MEDICARE, SELFPAY | END 2023-12-01 23:59 | disposition home or self-care (01) | LOC: SOT 11:11 | PROVIDERS: PCP Nurse Practitioner Family; Visit Provider Student in an Organized Health Care Education/Training Program | DX: Z47.89 Encounter for other orthopedic aftercare (principal) | CPT/HCPCS: 97110; 97165; 97530 ==

== ENCOUNTER → 2024-01-02 10:03 | Outpatient (BNVA) | payer MEDICARE, SELFPAY | PROVIDERS: PCP Nurse Practitioner Family; Visit Provider Internal Medicine Rheumatology | DX: Z79.899 Other long term (current) drug therapy (principal); M05.79 Rheumatoid arthritis with rheumatoid factor of multiple sites without organ or systems involvement; Z71.89 Other specified counseling; M79.7 Fibromyalgia; M19.041 Primary osteoarthritis, right hand; M19.042 Primary osteoarthritis, left hand | CPT/HCPCS: 36415; 80076; 82565; 85025; 86140; 99214 ==

== ENCOUNTER 2024-02-03 13:00 | Oncology outpatient (recurring) (ONCR) | payer MEDICARE, SELFPAY ==
[2024-02-03 13:55] VITALS: BP 110/72; PULSE 100; RESP 18; TEMP 36.3; O2SAT 93
[2024-02-03] MEDS: sodium chloride 0.9% 250 ML 75 ML IV (14:07)
[2024-02-03] MEDS: diphenhydrAMINE 50 mg/mL SDV 1mL 25 MG IVP (14:07)
[2024-02-03] MEDS: acetaminophen 325 mg Tablet 650 MG PO (14:07)
[2024-02-03] MEDS: SODIUM CHLORIDE 0.9% IV (14:22)
[2024-02-03] MEDS: GOLIMUMAB IV (14:22)
[2024-02-03 14:52] VITALS: BP 130/77; PULSE 92; RESP 18; TEMP 36.2; O2SAT 95
== END 2024-03-01 23:59 | disposition home or self-care (01) ==
PROVIDERS: PCP Nurse Practitioner Family; Visit Provider Internal Medicine Rheumatology
DX: M05.89 Other rheumatoid arthritis with rheumatoid factor of multiple sites (principal)
CPT/HCPCS: 96375; 96413; A4222; J1200; J1602; J7050

== ENCOUNTER 2024-03-16 12:25 | Oncology outpatient (recurring) (ONCR) | payer MEDICARE, SELFPAY ==
[2024-03-16 13:13] VITALS: BP 117/66; PULSE 83; RESP 18; TEMP 35.9; O2SAT 95
[2024-03-16] MEDS: sodium chloride 0.9% 250 ML 75 ML IV (13:27)
[2024-03-16] MEDS: diphenhydrAMINE 50 mg/mL SDV 1mL 25 MG IVP (13:27)
[2024-03-16] MEDS: acetaminophen 325 mg Tablet 650 MG PO (13:27)
[2024-03-16] MEDS: SODIUM CHLORIDE 0.9% IV (13:54)
[2024-03-16] MEDS: GOLIMUMAB IV (13:54)
[2024-03-16 14:30] VITALS: BP 116/80; PULSE 76; RESP 16; TEMP 36.5; O2SAT 93
== END 2024-04-01 23:59 | disposition home or self-care (01) ==
PROVIDERS: PCP Nurse Practitioner Family; Visit Provider Internal Medicine Rheumatology
DX: M05.79 Rheumatoid arthritis with rheumatoid factor of multiple sites without organ or systems involvement (principal)
CPT/HCPCS: 96375; 96413; A4222; J1200; J1602; J7050

== ENCOUNTER → 2024-04-28 09:09 | Outpatient (BNVA) | payer MEDICARE, SELFPAY | PROVIDERS: PCP Nurse Practitioner Family; Visit Provider Nurse Practitioner Family | DX: R50.9 Fever, unspecified (principal) | CPT/HCPCS: 87426 ==

== ENCOUNTER 2024-05-12 13:24 | Oncology outpatient (recurring) (ONCR) | payer OTHER, SELFPAY ==
[2024-05-12 13:48] VITALS: BP 129/81; PULSE 97; RESP 16; TEMP 36.1; O2SAT 91
[2024-05-12] MEDS: sodium chloride 0.9% 250 ML 75 ML IV (14:11)
[2024-05-12 14:12] LABS: Basophils # 0.1 10^3/uL (0.0-0.1); Basophils % 0.6 %; Eosinophils # 0.2 10^3/uL (0.0-0.8); Eosinophils % 2.4 %; Hematocrit 39.4 % (36-47); Lymphocytes # 2.6 10^3/uL (0.8-4.8); Lymphocytes % 33.2 %; Mean Corpuscular HGB Conc 33.5 g/dL (30-55); Mean Corpuscular Hemoglobin 31.7 pg (27-33); Mean Corpuscular Volume 94.5 fl (85-98); Mean Platelet Volume 9.8 fL (7.4-10.4); Monocytes # 0.6 10^3/uL (0.2-0.9); Monocytes % 7.4 %; Neutrophils # 4.39 10^3/uL (1.8-7.7); Nucleated Red Blood Cells % 0 %; Platelet Count 347 10^3/cmm (157-399); Red Blood Count 4.17 10^6/uL (3.85-5.65); Red Cell Distribution Width 13.3 % (12.1-15.1); White Blood Count 7.85 10^3/uL (3.29-11.43)
[2024-05-12] MEDS: acetaminophen 325 mg Tablet 650 MG PO (14:18)
[2024-05-12] MEDS: diphenhydrAMINE 50 mg/mL SDV 1mL 25 MG IVP (14:18)
[2024-05-12 14:26] LABS: Alanine Aminotransferase 15 U/L (0-33); Albumin Level 4.1 g/dL (3.5-5.2); Alkaline Phosphatase 79 U/L (35-105); C Reactive Protein 7.3 mg/L (0.0-4.9); Creatinine Clr Calc Pharmacy 60.5805; Globulin 2.6 g/dL (1.3-4.6); Glomerular Filtration Rate 122.3 mL/min (90-130); Total Bilirubin 0.3 mg/dL (0.15-1.2); Total Protein 6.7 g/dL (6.6-8.7)
[2024-05-12 14:39] LABS: Aspartate Amino Transferase 23 U/L (0-32)
[2024-05-12] MEDS: GOLIMUMAB IV (14:43)
[2024-05-12] MEDS: SODIUM CHLORIDE 0.9% IV (14:43)
[2024-05-12 15:20] VITALS: BP 136/80; PULSE 87; RESP 16; TEMP 37.2; O2SAT 93
== END 2024-06-01 23:59 | disposition home or self-care (01) ==
PROVIDERS: PCP Nurse Practitioner Family; Visit Provider Internal Medicine Rheumatology
DX: Z79.899 Other long term (current) drug therapy (principal); M05.79 Rheumatoid arthritis with rheumatoid factor of multiple sites without organ or systems involvement
CPT/HCPCS: 80076; 82565; 85025; 86140; 96375; 96413; A4222; J1200; J1602; J7050

== ENCOUNTER 2024-06-30 08:41 | Oncology outpatient (recurring) (ONCR) | payer OTHER, SELFPAY ==
--- NOTE | 2024-06-30 09:30 | MM_ITS ---
WS: [id number] DIAGNOSTIC BILATERAL DIGITAL BREAST TOMOSYNTHESIS MAMMOGRAPHY WITH CAD RIGHT breast ultrasound, limited HISTORY: N63.10 - Unspecified lump in the right breast, unspecifie... COMPARISON: 01/03/2012, 01/30/2023 and 12/15/2020 TECHNIQUE: Bilateral craniocaudad, mediolateral oblique, and mediolateral views are submitted with to mosynthesis and SM. Spot compression RIGHT CC and MLO. Computer aided detection utilized. Breast composition: There are scattered areas of fibroglandular density. High density, partially obscured ovoid mass in the anterior RIGHT breast measures 1.5 x 1.3 x 1.3 cm. This mass is just lateral to the nipple at 9:00. This mass has been present on multiple prior examin ations without significant increase in size. No additional abnormalities. Vascular calcifications. RIGHT breast ultrasound, limited Well-circumscribed ovoid mass which is well-circumscribed with through transmission at 9:00 1 cm from the nipple. This is a complex cystic solid mass measuring 1.9 x 1.6 x 1.2 cm. There is no increased vascularity within this mass. This mass was also identified on a prior examination from 07/15/2013. MM/MM diag BI tomosynthesis [id number] IMPRESSION: BI-RADS: 2 - Benign. FOLLOW UP: 1 Year Follow-up The palpable complex cystic mass in the RIGHT breast has been present for multi ple prior years. There is no increased vascularity and no significant increase in size. Favor this is a complex cyst. If this mass is painful ultrasound-guide d aspiration may be of benefit. If there is a concern this mass is enlarging ul trasound-guided biopsy can be performed.
--- NOTE | 2024-06-30 10:00 | US_ITS ---
WS: [id number] DIAGNOSTIC BILATERAL DIGITAL BREAST TOMOSYNTHESIS MAMMOGRAPHY WITH CAD RIGHT breast ultrasound, limited HISTORY: N63.10 - Unspecified lump in the right breast, unspecifie... COMPARISON: 01/03/2012, 01/30/2023 and 12/15/2020 TECHNIQUE: Bilateral craniocaudad, mediolateral oblique, and mediolateral views are submitted with to mosynthesis and SM. Spot compression RIGHT CC and MLO. Computer aided detection utilized. Breast composition: There are scattered areas of fibroglandular density. High density, partially obscured ovoid mass in the anterior RIGHT breast measures 1.5 x 1.3 x 1.3 cm. This mass is just lateral to the nipple at 9:00. This mass has been present on multiple prior examin ations without significant increase in size. No additional abnormalities. Vascular calcifications. RIGHT breast ultrasound, limited Well-circumscribed ovoid mass which is well-circumscribed with through transmission at 9:00 1 cm from the nipple. This is a complex cystic solid mass measuring 1.9 x 1.6 x 1.2 cm. There is no increased vascularity within this mass. This mass was also identified on a prior examination from 07/15/2013. US/US breast RT limited* [id number] IMPRESSION: BI-RADS: 2 - Benign. FOLLOW UP: 1 Year Follow-up The palpable complex cystic mass in the RIGHT breast has been present for multi ple prior years. There is no increased vascularity and no significant increase in size. Favor this is a complex cyst. If this mass is painful ultrasound-guide d aspiration may be of benefit. If there is a concern this mass is enlarging ul trasound-guided biopsy can be performed.
== END 2024-07-02 23:59 | disposition home or self-care (01) ==
LOC: ONCMED 08:41 → RAD 10:35 → ONCMED 07-01 11:47
PROVIDERS: PCP Nurse Practitioner Family; Visit Provider Internal Medicine Rheumatology
DX: R92.8 Other abnormal and inconclusive findings on diagnostic imaging of breast; N60.01 Solitary cyst of right breast
CPT/HCPCS: 76642; 77062; G0279

== ENCOUNTER 2024-07-07 12:28 | Oncology outpatient (recurring) (ONCR) | payer OTHER, SELFPAY ==
[2024-07-07 12:44] VITALS: BP 139/84; PULSE 96; RESP 16; TEMP 36.8; O2SAT 96
[2024-07-07] MEDS: diphenhydrAMINE 50 mg/mL SDV 1mL 25 MG IVP (13:02)
[2024-07-07] MEDS: acetaminophen 325 mg Tablet 650 MG PO (13:02)
[2024-07-07 13:11] LABS: Basophils % 0.5 %; Eosinophils # 0.1 10^3/uL (0.0-0.8); Eosinophils % 0.8 %; Hematocrit 40.2 % (36-47); Lymphocytes # 1.9 10^3/uL (0.8-4.8); Lymphocytes % 25.4 %; Mean Corpuscular HGB Conc 33.1 g/dL (30-55); Mean Corpuscular Hemoglobin 31.9 pg (27-33); Mean Corpuscular Volume 96.4 fl (85-98); Mean Platelet Volume 10.4 fL (7.4-10.4); Monocytes # 0.4 10^3/uL (0.2-0.9); Monocytes % 4.7 %; Neutrophils # 5.11 10^3/uL (1.8-7.7); Neutrophils % 68.3 %; Nucleated Red Blood Cells % 0 %; Platelet Count 328 10^3/cmm (157-399); Red Blood Count 4.17 10^6/uL (3.85-5.65); Red Cell Distribution Width 13.5 % (12.1-15.1); White Blood Count 7.48 10^3/uL (3.29-11.43)
[2024-07-07 13:39] LABS: Alanine Aminotransferase 15 U/L (0-33); Albumin Level 4.2 g/dL (3.5-5.2); Alkaline Phosphatase 71 U/L (35-105); Aspartate Amino Transferase 20 U/L (0-32); Globulin 2.5 g/dL (1.3-4.6); Glomerular Filtration Rate 99.1 mL/min (90-130); Total Bilirubin 0.3 mg/dL (0.15-1.2); Total Protein 6.7 g/dL (6.6-8.7)
[2024-07-07] MEDS: golimumab 130 MG in sodium chloride 0.9% (100 ml) 100 ML 220.8 MG IV (13:41)
[2024-07-07 14:23] VITALS: BP 137/79; PULSE 81; RESP 17; TEMP 35.9; O2SAT 98
== END 2024-08-01 23:59 | disposition home or self-care (01) ==
PROVIDERS: PCP Nurse Practitioner Family; Visit Provider Internal Medicine Rheumatology
DX: M05.79 Rheumatoid arthritis with rheumatoid factor of multiple sites without organ or systems involvement (principal); Z79.899 Other long term (current) drug therapy; Z53.9 Procedure and treatment not carried out, unspecified reason
CPT/HCPCS: 80076; 82565; 85025; 86140; 96375; 96413; A4222; J1200; J1602

== ENCOUNTER 2024-09-01 09:35 | Oncology outpatient (recurring) (ONCR) | payer OTHER, SELFPAY ==
[2024-09-01 10:29] VITALS: BP 152/76; PULSE 91; RESP 16; TEMP 36.9; O2SAT 95
[2024-09-01] MEDS: sodium chloride 0.9% 250 ML 75 ML IV (11:40)
[2024-09-01] MEDS: acetaminophen 325 mg Tablet 650 MG PO (11:40)
[2024-09-01] MEDS: diphenhydrAMINE 50 mg/mL SDV 1mL 25 MG IVP (11:44)
[2024-09-01] MEDS: golimumab 130 MG in sodium chloride 0.9% (100 ml) 100 ML 220.8 MG IV (12:14)
[2024-09-01 16:58] VITALS: BP 146/78; PULSE 84; RESP 18; TEMP 36.6; O2SAT 98
== END 2024-09-01 23:59 | disposition home or self-care (01) ==
PROVIDERS: PCP Nurse Practitioner Family; Visit Provider Internal Medicine Rheumatology
DX: M05.79 Rheumatoid arthritis with rheumatoid factor of multiple sites without organ or systems involvement (principal); Z79.899 Other long term (current) drug therapy
CPT/HCPCS: 96367; 96413; A4222; J1200; J1602; J7050

== ENCOUNTER 2024-11-04 12:29 | Oncology outpatient (recurring) (ONCR) | payer OTHER, SELFPAY ==
[2024-11-04 13:13] VITALS: BP 138/77; PULSE 99; RESP 18; TEMP 36.6; O2SAT 96
[2024-11-04] MEDS: acetaminophen 325 mg Tablet 650 MG PO (13:50)
[2024-11-04] MEDS: sodium chloride 0.9% 250 ML 75 ML IV (13:50)
[2024-11-04] MEDS: diphenhydrAMINE 50 mg/mL SDV 1mL 25 MG IVP (13:51)
[2024-11-04 13:55] LABS: Basophils # 0.1 10^3/uL (0.0-0.1); Basophils % 0.7 %; Eosinophils # 0.1 10^3/uL (0.0-0.8); Hematocrit 40.5 % (36-47); Lymphocytes # 1.8 10^3/uL (0.8-4.8); Lymphocytes % 26.7 %; Mean Corpuscular HGB Conc 32.8 g/dL (30-55); Mean Corpuscular Hemoglobin 31.7 pg (27-33); Mean Corpuscular Volume 96.4 fl (85-98); Mean Platelet Volume 10.2 fL (7.4-10.4); Monocytes # 0.4 10^3/uL (0.2-0.9); Monocytes % 5.7 %; Neutrophils # 4.37 10^3/uL (1.8-7.7); Neutrophils % 65.6 %; Nucleated Red Blood Cells % 0 %; Platelet Count 398 10^3/cmm (157-399); Red Cell Distribution Width 13.5 % (12.1-15.1); White Blood Count 6.67 10^3/uL (3.29-11.43)
[2024-11-04] MEDS: golimumab 130 MG in sodium chloride 0.9% (100 ml) 100 ML 220.8 MG IV (14:09)
[2024-11-04 14:11] LABS: Alanine Aminotransferase 16 U/L (0-33); Albumin Level 4.3 g/dL (3.5-5.2); Alkaline Phosphatase 64 U/L (35-105); Aspartate Amino Transferase 19 U/L (0-32); Globulin 2.6 g/dL (1.3-4.6); Glomerular Filtration Rate 122.3 mL/min (90-130); Total Bilirubin 0.2 mg/dL (0.15-1.2); Total Protein 6.9 g/dL (6.6-8.7)
[2024-11-04 14:50] VITALS: BP 127/78; PULSE 94; RESP 18; TEMP 36.6; O2SAT 96
== END 2024-11-30 23:59 | disposition home or self-care (01) ==
PROVIDERS: PCP Nurse Practitioner Family; Visit Provider Internal Medicine Rheumatology
DX: M05.79 Rheumatoid arthritis with rheumatoid factor of multiple sites without organ or systems involvement (principal); Z79.899 Other long term (current) drug therapy
CPT/HCPCS: 80076; 82565; 85025; 86140; 96375; 96413; A4222; J1200; J1602; J7050; J9999

== ENCOUNTER 2025-02-26 08:49 | Oncology outpatient (recurring) (ONCR) | payer MEDICARE, SELFPAY ==
[2025-02-26] MEDS: diphenhydrAMINE 50 mg/mL SDV 1mL 25 MG IVP (09:38)
[2025-02-26] MEDS: acetaminophen 325 mg Tablet 650 MG PO (09:38)
[2025-02-26 09:43] LABS: Basophils # 0.1 10^3/uL (0.0-0.1); Basophils % 0.7 %; Eosinophils # 0.1 10^3/uL (0.0-0.8); Eosinophils % 1.4 %; Hematocrit 39.5 % (36-47); Lymphocytes # 1.4 10^3/uL (0.8-4.8); Lymphocytes % 17.3 %; Mean Corpuscular HGB Conc 33.9 g/dL (30-55); Mean Corpuscular Hemoglobin 31.3 pg (27-33); Mean Corpuscular Volume 92.3 fl (85-98); Mean Platelet Volume 9.8 fL (7.4-10.4); Monocytes # 0.5 10^3/uL (0.2-0.9); Monocytes % 5.8 %; Neutrophils # 6.05 10^3/uL (1.8-7.7); Neutrophils % 74.4 %; Nucleated Red Blood Cells % 0 %; Platelet Count 364 10^3/cmm (157-399); Red Blood Count 4.28 10^6/uL (3.85-5.65); Red Cell Distribution Width 13.1 % (12.1-15.1); White Blood Count 8.13 10^3/uL (3.29-11.43)
[2025-02-26] MEDS: SODIUM CHLORIDE 0.9% IV (09:52)
[2025-02-26] MEDS: GOLIMUMAB IV (09:52)
[2025-02-26 10:02] LABS: Alanine Aminotransferase 14 U/L (0-33); Albumin Level 3.8 g/dL (3.5-5.2); Alkaline Phosphatase 65 U/L (35-105); Aspartate Amino Transferase 18 U/L (0-32); Bilirubin Direct 0.09 mg/dL (0.00-0.30); C Reactive Protein 6.8 mg/L (0.0-4.9); Erythrocyte Sedimentation Rate 20 mm/hr (0-15); Globulin 2.7 g/dL (1.3-4.6); Glomerular Filtration Rate 157.8 mL/min (90-130); Total Bilirubin 0.2 mg/dL (0.15-1.2); Total Protein 6.5 g/dL (6.6-8.7)
[2025-02-26 10:28] VITALS: BP 135/78; PULSE 85; RESP 18; TEMP 36.7; O2SAT 94
== END 2025-03-01 23:59 | disposition home or self-care (01) ==
PROVIDERS: PCP Nurse Practitioner Family; Visit Provider Internal Medicine Rheumatology
DX: M79.7 Fibromyalgia (principal); M05.89 Other rheumatoid arthritis with rheumatoid factor of multiple sites; Z79.899 Other long term (current) drug therapy
CPT/HCPCS: 80076; 82565; 85025; 85651; 86140; 96365; 96375; A4222; J1200; J1602; J9999

== ENCOUNTER 2025-04-26 10:52 | Oncology outpatient (recurring) (ONCR) | payer MEDICARE, SELFPAY ==
[2025-04-26] MEDS: diphenhydrAMINE 50 mg/mL SDV 1mL 25 MG IVP (11:58)
[2025-04-26] MEDS: SODIUM CHLORIDE 0.9% IV (12:23)
[2025-04-26] MEDS: GOLIMUMAB IV (12:23)
[2025-04-26 13:10] VITALS: BP 146/80; PULSE 94; RESP 17; TEMP 36.2; O2SAT 95
== END 2025-05-02 23:59 | disposition home or self-care (01) ==
PROVIDERS: PCP Nurse Practitioner Family; Visit Provider Internal Medicine Rheumatology
DX: M05.89 Other rheumatoid arthritis with rheumatoid factor of multiple sites (principal); Z79.899 Other long term (current) drug therapy
CPT/HCPCS: 96375; 96413; A4222; J1200; J1602; J7050; J9999

== ENCOUNTER → 2025-06-02 10:53 | Outpatient (BNVA) | payer MEDICARE, SELFPAY | PROVIDERS: PCP Nurse Practitioner Family; Visit Provider Internal Medicine Rheumatology | DX: M05.79 Rheumatoid arthritis with rheumatoid factor of multiple sites without organ or systems involvement (principal); Z79.899 Other long term (current) drug therapy; Z71.85 Encounter for immunization safety counseling; M79.7 Fibromyalgia; M19.041 Primary osteoarthritis, right hand; M19.042 Primary osteoarthritis, left hand; Z96.643 Presence of artificial hip joint, bilateral; Z96.651 Presence of right artificial knee joint; K76.89 Other specified diseases of liver | CPT/HCPCS: 99214 ==

== ENCOUNTER 2025-06-21 12:00 | Oncology outpatient (recurring) (ONCR) | payer MEDICARE, SELFPAY ==
[2025-06-21 12:16] VITALS: BP 137/77; PULSE 92; TEMP 36.6; O2SAT 94
[2025-06-21] MEDS: diphenhydrAMINE 50 mg/mL SDV 1mL 25 MG IVP (12:33)
[2025-06-21 12:39] LABS: Hematocrit 40.4 % (36-47); Hemoglobin 13.90 g/dL (11.27-16.99); Mean Corpuscular HGB Conc 34.4 g/dL (30-55); Mean Corpuscular Hemoglobin 31.3 pg (27-33); Mean Corpuscular Volume 91.0 fl (85-98); Nucleated Red Blood Cells % 0 %; Platelet Count 341 10^3/cmm (157-399); Red Blood Count 4.44 10^6/uL (3.85-5.65); White Blood Count 8.49 10^3/uL (3.29-11.43)
[2025-06-21 12:55] LABS: Alanine Aminotransferase 19 U/L (0-33); Albumin Level 4.3 g/dL (3.5-5.2); Alkaline Phosphatase 64 U/L (35-105); Aspartate Amino Transferase 22 U/L (0-32); Creatinine Clr Calc Pharmacy 60.2892; Globulin 2.8 g/dL (1.3-4.6); Total Protein 7.1 g/dL (6.6-8.7)
[2025-06-21] MEDS: GOLIMUMAB IV (12:59)
[2025-06-21] MEDS: SODIUM CHLORIDE 0.9% IV (12:59)
[2025-06-21 13:33] VITALS: BP 147/76; PULSE 84; TEMP 36.3; O2SAT 94
== END 2025-07-02 23:59 | disposition home or self-care (01) ==
PROVIDERS: PCP Nurse Practitioner Family; Visit Provider Internal Medicine Rheumatology
DX: M05.89 Other rheumatoid arthritis with rheumatoid factor of multiple sites (principal); Z79.899 Other long term (current) drug therapy
CPT/HCPCS: 80076; 82565; 85025; 85651; 86140; 86480; 96375; 96413; A4222; J1200; J1602; J7050; J9999

== ENCOUNTER → 2025-07-21 12:37 | Outpatient (BNVA) | payer MEDICARE, SELFPAY | PROVIDERS: PCP Nurse Practitioner Family; Visit Provider Nurse Practitioner Family | DX: Z01.89 Encounter for other specified special examinations (principal); Z11.1 Encounter for screening for respiratory tuberculosis | CPT/HCPCS: 86580 ==